=== PATIENT | female | born 1965 | race Caucasian/White ===

== ENCOUNTER → 2016-12-11 | Outpatient (CLI) | payer OTHER ==
[~2016-12-11] MED LIST: /PRAV20TA PO; ANEX7.5T PO; CALCCHW12 PO; CALCTAB22 OR; HYDR25TA6 OR; LISI20TA5 OR; METF500T PO; OMEP20TA7 OR; POTA20TA OR; SIMV20TA2 OR; TYLETAB3 OR; ULTR50TA PO; Xyzal OR; [UNRECOGNIZED DRUG - OTHER]; [UNRECOGNIZED DRUG - OTHER] OR; [UNRECOGNIZED DRUG - OTHER] PO; [UNRECOGNIZED DRUG - OTHER] PO
--- NOTE | 2016-12-16 13:04 | SLEEPCENT ---
DATE OF STUDY: 12/11/2016 ORDERING PROVIDER: Katlin Johnson NP Nocturnal polysomnography was performed for the titration of pressure therapy in this patient with obstructive sleep apnea syndrome, confirmed by home testing, who is intolerant of auto-titratable pressure therapy. For testing, a ResMed Quattro full face mask of small size was used. 4 cm of water pressure were applied to the circuit, and the lights were extinguished. 7 hours and 20 minutes of data were reviewed. There were 360 minutes of sleep identified. Sleep latency was normal at 16 minutes. Rapid eye movement (REM) was normal at 85 minutes. Sleep architecture was fair to good. Some mild fragmentation was seen. There were three REM periods. Overall sleep efficiency was 84%. The patient's electrocardiogram (EKG) showed a sinus rhythm with an average heart rate of 80 beats per minute. Electroencephalogram (EEG) showed reasonably normal waveforms for awake and sleep. Respiratory events were found best palliated with continuous positive airway pressure (CPAP) at a pressure of +5. CPAP tolerance was good. Significant limb activity was identified during this testing. There were three trains of thirty events and a limb movement arousal index of 12.8. Remaining measures of sleep physiology were normal. IMPRESSION: 1. Obstructive sleep apnea syndrome (G47.33). 2. Periodic limb movement disorder (G47.61). Limb movement arousal index 12.8. RECOMMENDATION: Nightly use of pressure therapy at 5 cm of water should be sufficient to address the patient's respiratory events. Should sleep symptoms persist, interventions to reduce the frequency of arousal from limb activity may also be helpful at consolidating sleep.
== END ==
LOC: M SLEEP 19:42
PROVIDERS: ATTEND Nurse Practitioner Adult Health
DX: G47.33 Obstructive sleep apnea (adult) (pediatric) (principal); G47.61 Periodic limb movement disorder

== ENCOUNTER 2017-01-25 21:20 | Observation (INO) | payer OTHER ==
[~2017-01-25] VITALS: Ht 167.6 cm; Wt 92.9 kg
[2017-01-25] MEDS ORDERED: TIZA2CAP3 PO (21:40)
[2017-01-25] MEDS ORDERED: OMEP40CA2 PO (21:40)
[2017-01-25] MEDS ORDERED: METF500T PO (21:40)
[2017-01-25] MEDS ORDERED: VICO5TAB16 PO (21:40)
[2017-01-25] MEDS ORDERED: SIMV20TA2 PO (21:40)
[2017-01-25] MEDS ORDERED: ASMA1AER3 INH (21:40)
[2017-01-25] MEDS ORDERED: ASPI81TA85 PO (21:40)
[2017-01-25] MEDS ORDERED: CYCL10TA PO (21:40)
[2017-01-25] MEDS ORDERED: ALBU17IN INH (21:40)
[2017-01-25] MEDS ORDERED: CALC600T57 PO (21:40)
[2017-01-25] MEDS ORDERED: IPRATROPIUM 0.5MG/ALBUTEROL 2.5MG INH SOL UD 3ML (DUONEB)(J7620) NEB ONE (22:00)
[2017-01-25] MEDS ORDERED: ASPIRIN 81 MG CHEW TABLET PO ONE (22:00)
[2017-01-25] MEDS ORDERED: NS 500 ML IV ONE (22:00)
[2017-01-25 22:14] LABS: BASO % 0.5 % (0.0-1.0); EOS # 0.2 K/mm3 (0.0-0.50); EOS % 1.9 % (0.0-3.0); LARGE UNSTAINED CELL # 0.2 K/mm3 (0.0-0.4); LARGE UNSTAINED CELL % 1.6 % (0.0-4.0); LYMPH # 3.7 K/mm3 (1.5-4.5); LYMPH % 31.5 % (24.0-44.0); MEAN CORPUSCULAR HGB CONC 32.9 g/dl (32.0-36.5); MEAN CORPUSCULAR VOLUME 88.1 fl (80.0-96.0); MONO # 0.5 K/mm3 (0.0-0.8); MONO % 4.9 % (0.0-5.0); NEUTROPHILS # 6.6 K/mm3 (1.8-7.7); NEUTROPHILS % 59.7 % (36.0-66.0); PLATELET COUNT, AUTOMATED 225 k/mm3 (150-450); RED CELL DISTRIBUTION WIDTH 13.4 % (11.5-14.5); WHITE BLOOD COUNT 11.1 K/mm3 (4.0-10.0)
[2017-01-25 22:39] LABS: ANION GAP 7 MEQ/L (8-16); BLOOD UREA NITROGEN 18 MG/DL (7-18); CALCIUM LEVEL 9.6 MG/DL (8.5-10.1); CARBON DIOXIDE LEVEL 28 MEQ/L (21-32); CHLORIDE LEVEL 104 MEQ/L (98-107); CREATININE FOR GFR 1.19 MG/DL (0.55-1.02); GLOMERULAR FILTRATION RATE 51.1 (>51); GLUCOSE, FASTING 126 MG/DL (70-105); POTASSIUM SERUM 3.4 MEQ/L (3.5-5.1); SODIUM LEVEL 139 MEQ/L (136-145)
[2017-01-25] MEDS ORDERED: ISOVUE-370 76% 100ML VIAL (Q9967) As Ordered ONE (22:44)
--- NOTE | 2017-01-25 23:30 | REPUSA ---
CT angiogram of the chest Clinical statement: Chest pain and shortness of breath. Technique: Multiple axial CT images were obtained from the thoracic inlet through the upper abdomen a fter a bolus administration of nonionic intravenous contrast. Coronal and sagittal reconstructions we re also obtained. Comparison: 04/12/2014. Findings: The pulmonary arteries are well-opacified with contrast, with no intraluminal filling defec ts to suggest embolism. The thoracic aorta is unremarkable. Thyroid gland is within normal limits. Th ere is no thoracic lymphadenopathy. There are no pericardial or pleural effusions. There is new linea r infiltrate in the lingula of the left lung. Limited imaging of the upper abdomen is unremarkable. T here are no suspicious osseous lesions. Impression: 1. No evidence of pulmonary embolism. 2. Linear infiltrate/atelectasis in the lingula of the left lung.
[2017-01-25] MEDS ORDERED: AZITHROMYCIN INJ 500 MG, VIAL MATE ADAPTER 1 EACH in D5W 250 ML IV ONE (23:45)
[2017-01-26] VITALS (7 sets, daily range): BP systolic 116–136; BP diastolic 58–74; PULSE 76–83
[2017-01-26] MEDS ORDERED: CALC600T57 PO (00:28)
[2017-01-26] MEDS ORDERED: GLUCOSE 4 GM CHEW TABLET PO PRN (03:15)
[2017-01-26] MEDS ORDERED: GLUCAGON FOR INJ 1 MG VIAL (J1610) SC PRN (03:15)
[2017-01-26] MEDS ORDERED: ONDANSETRON 4MG/2ML VIAL (J2405) IV PRN (03:15)
[2017-01-26] MEDS ORDERED: DEXTROSE 50% 50 ML SYRINGE IV PRN (03:15)
[2017-01-26] MEDS ORDERED: ALBUTEROL SULFATE 2.5 MG/0.5 ML INH NEB SOLN NEB PRN (03:45)
[2017-01-26] MEDS ORDERED: NORCO, ANEXSIA 5/325MG TABLET (HYDROcodone/ACETAMINOPHEN) PO PRN (04:00)
[2017-01-26] MEDS ORDERED: tiZANidine 4 MG TAB PO PRN (04:00)
[2017-01-26] MEDS ORDERED: POTASSIUM CHLORIDE 10 MEQ SR TABLET PO ONE (04:00)
[2017-01-26 04:11] LABS: BASO % 0.5 % (0.0-1.0); EOS # 0.3 K/mm3 (0.0-0.50); EOS % 3.4 % (0.0-3.0); LARGE UNSTAINED CELL # 0.2 K/mm3 (0.0-0.4); LARGE UNSTAINED CELL % 2.1 % (0.0-4.0); LYMPH # 3.2 K/mm3 (1.5-4.5); LYMPH % 38.1 % (24.0-44.0); MEAN CORPUSCULAR HEMOGLOBIN 28.6 pg (27.0-33.0); MEAN CORPUSCULAR HGB CONC 32.2 g/dl (32.0-36.5); MEAN CORPUSCULAR VOLUME 88.8 fl (80.0-96.0); MONO # 0.5 K/mm3 (0.0-0.8); NEUTROPHILS % 49.8 % (36.0-66.0); PLATELET COUNT, AUTOMATED 219 k/mm3 (150-450); RED CELL DISTRIBUTION WIDTH 13.5 % (11.5-14.5)
[2017-01-26 04:22] LABS: CALCIUM LEVEL 9.1 MG/DL (8.5-10.1); CREATININE FOR GFR 1.11 MG/DL (0.55-1.02); GLOMERULAR FILTRATION RATE 55.4 (>51)
[2017-01-26 04:49] LABS: POTASSIUM SERUM 4.1 MEQ/L (3.5-5.1)
--- NOTE | 2017-01-26 06:07 | ECGEPIP ---
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
[2017-01-26] MEDS: LevoFLOXacin 500 MG TABLET PO SCH (06:23)
[2017-01-26] MEDS: HumaLOG INSULIN (NovoLOG) PER UNIT SC SCH ×3 (07:12→16:56)
--- NOTE | 2017-01-26 07:36 | HPE ---
DATE OF ADMISSION: 01/26/2017 PRIMARY CARE PROVIDER: At the resident[facility] clinic. CHIEF COMPLAINT: Left sided chest pain radiating to the axilla for three days. PAST MEDICAL HISTORY: 1. Obesity. 2. Chronic obstructive pulmonary disease (COPD). 3. Diabetes. 4. Obstructive sleep apnea. 5. Periodic limb movement disorder. 6. Hyperlipidemia. 7. Gastroesophageal reflux disease (GERD). 8. Chronic back pain. HISTORY OF PRESENT ILLNESS: This is a 51-year-old female with the above past medical history who presented to the emergency room for a three day history of left sided chest pain present in the second and third intercostal spaces and radiating towards the axilla, constantly present without any aggravation. There is no radiation to the arms or to the back. Not aggravated by deep breaths or by coughing. The patient denied any fever or chills. Denied any nausea, vomiting or diarrhea. Denied any abdominal pain. Denied any palpitations. In the emergency department (ED), the patient was worked up for acute coronary syndrome (ACS). The first set of cardiac enzymes were negative; however, electrocardiogram (EKG) showed sinus tachycardia and ST flattening and T inversion in II, III and aVF leads, which is new compared to previous EKG two years ago. The patient also had a CT angiography done which was negative for pulmonary embolism, however, did show new lingular infiltrate in the left lung. The patient also had Strep throat positive. In the ED, the patient also complained of ear pain and loss of voice and sore throat today, so the patient was admitted for chest pain, rule out ACS and pneumonia. PAST SURGICAL HISTORY: 1. Hysterectomy in 2007. 2. Lumbar laminectomy in 2012. 3. Abdominal hernia repair in 2012. 4. Left nephrectomy in 1998. ALLERGIES: BEE POLLEN (causes anaphylaxis). HOME MEDICATIONS: - acetaminophen/hydrocodone 5/325 one tablet by mouth every 6 hours as needed pain - albuterol sulfate 2 puff inhalation as needed shortness of breath or wheezing - aspirin 81 mg daily - calcium with vitamin D3 2 tablets by mouth at bedtime - cyclobenzaprine 10 mg at bedtime - metformin 500 mg by mouth daily - mometasone 200 mcg inhalation at bedtime - simvastatin 20 mg daily - tizanidine 2 mg three times a day as needed muscle spasms FAMILY HISTORY: Nothing significant. REVIEW OF SYSTEMS: All ten point review of systems negative except those mentioned in HISTORY OF PRESENT ILLNESS: (HPI). PHYSICAL EXAMINATION: VITAL SIGNS: Temperature 98.9. Pulse 92. Respiratory rate 18. Blood pressure 129/52. Pulse oximetry 97% in room air. GENERAL: The patient awake, alert and oriented times three, laying down in bed in no acute distress. HEENT: Normocephalic, atraumatic. Moist mucous membranes. Anicteric eyes. CHEST: Clear to auscultation. CARDIOVASCULAR: S1, S2, regular. No rub, murmur or gallop. ABDOMEN: Obese. Soft. Nontender. Bowel sounds present. EXTREMITIES: No edema. LABORATORY DATA: WBC 11.1, platelets 225. Sodium 139, potassium 3.4, chloride 104, bicarbonate 28, BUN 18, creatinine 1.19, glucose 126, calcium 9.6. Cardia enzymes negative. BNP 9.4. ASSESSMENT AND PLAN: This is a 51-year-old female admitted for chest pain, rule out acute coronary syndrome and pneumonia and Strep throat. 1. Chest pain. Rule out ACS. Will repeat electrocardiogram (EKG) and cardiac enzymes in 6 hours. Most probably noncardiac. It could be related to new lingular infiltrate and pneumonia. 2. Strep throat and pneumonia. Will continue the patient on levofloxacin. 3. Chronic obstructive pulmonary disease. Will continue the patient on steroid inhalation, albuterol and ipratropium inhalation. 4. Diabetes. Will continue the patient on sliding scale insulin. 5. Obstructive sleep apnea. Will continue the patient on CPAP. 6. Chronic back pain. Will continue pain medications and muscle relaxants as required. 7. Deep vein thrombosis (DVT) prophylaxis has been ordered. 8. Gastrointestinal (GI) prophylaxis has been ordered. 9. Hyperlipidemia. Will continue with simvastatin.
--- NOTE | 2017-01-26 08:08 | REP ---
CHEST PA AND LATERAL: 01/25/2017 Comparison: 04/12/2014, 06/04/2009, CT chest 04/12/2014. Clinical History: Chest pain. Findings: The lungs are hyperinflated. The CP angles are sharply defined without effusion, lateral pleural thickening apical scarring and infiltrate or mass. Minor basilar fibrotic changes seen. Heart, mediastinal, hilar contours normal. Hemalatha are mildly prominent but unchanged. Airway intact. Bones with some degenerative changes spine and shoulders. Impression: 1. Some mild hyperinflation without infiltrate, effusion, cardiomegaly, edema, atelectasis or mass. There is some pulmonary arterial hypertension and some minor basilar fibrotic change. Signed by John Almodovar MD 01/26/2017 07:58 A
[2017-01-26] MEDS: SIMVASTATIN 20 MG TAB PO SCH (09:00)
[2017-01-26] MEDS: PANTOPRAZOLE 40MG TAB (PROTONIX) PO SCH (09:00)
[2017-01-26] MEDS: ENOXAPARIN 40 MG/0.4 ML SYRINGE (J1650) SC SCH (09:01)
[2017-01-26] MEDS: IPRATROPIUM 0.5MG/ALBUTEROL 2.5MG INH SOL UD 3ML (DUONEB)(J7620) NEB SCH ×2 (09:08→16:18)
[2017-01-26] MEDS: BUDESONIDE 0.25 MG/2 ML INHALATION SUSPENSION INH SCH ×2 (09:08→20:34)
[2017-01-26] MEDS: ACETAMINOPHEN 500 MG TAB PO PRN (15:51)
--- NOTE | 2017-01-26 17:51 | ECGEPIP ---
Stationary ECG Study [facility] Test Date: 2017-01-26 Pat Name: JEZ DAVIS Department: Room: 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 Nonspecific ST/T-wave abnormalities Repolarization abnormalities less prominent with slower heart rate from 01/25/17. Electronically Signed On 01-26-2017 17:51:08 EDT by Tyler Mckeon
[2017-01-26] MEDS ORDERED: NICOTINE 14 MG/24 HR TRANSDERMAL TD ONE (21:00)
[2017-01-26] MEDS ORDERED: ASPIRIN 81 MG ENTERIC TAB PO SCH (21:00)
[2017-01-26] MEDS ORDERED: HumaLOG INSULIN (NovoLOG) PER UNIT SC SCH (21:00)
[2017-01-27 04:31] VITALS: BP 144/72
[2017-01-27] MEDS: ACETAMINOPHEN 500 MG TAB PO PRN (04:38)
[2017-01-27 05:27] LABS: BASO % 0.5 % (0.0-1.0); EOS # 0.2 K/mm3 (0.0-0.50); EOS % 4.3 % (0.0-3.0); LARGE UNSTAINED CELL # 0.1 K/mm3 (0.0-0.4); LARGE UNSTAINED CELL % 2.1 % (0.0-4.0); LYMPH # 2.5 K/mm3 (1.5-4.5); LYMPH % 44.7 % (24.0-44.0); MEAN CORPUSCULAR HEMOGLOBIN 28.6 pg (27.0-33.0); MEAN CORPUSCULAR HGB CONC 32.4 g/dl (32.0-36.5); MEAN CORPUSCULAR VOLUME 88.4 fl (80.0-96.0); MONO # 0.4 K/mm3 (0.0-0.8); MONO % 6.7 % (0.0-5.0); NEUTROPHILS # 2.2 K/mm3 (1.8-7.7); NEUTROPHILS % 41.7 % (36.0-66.0); PLATELET COUNT, AUTOMATED 198 k/mm3 (150-450); RED CELL DISTRIBUTION WIDTH 13.3 % (11.5-14.5); WHITE BLOOD COUNT 5.3 K/mm3 (4.0-10.0)
[2017-01-27] MEDS: LevoFLOXacin 500 MG TABLET PO SCH (05:29)
[2017-01-27 05:54] LABS: CALCIUM LEVEL 9.1 MG/DL (8.5-10.1); CREATININE FOR GFR 1.18 MG/DL (0.55-1.02); GLOMERULAR FILTRATION RATE 51.6 (>51); POTASSIUM SERUM 3.9 MEQ/L (3.5-5.1)
[2017-01-27 07:30] VITALS: BP 155/78
[2017-01-27] MEDS: BUDESONIDE 0.25 MG/2 ML INHALATION SUSPENSION INH SCH (08:00)
[2017-01-27] MEDS: IPRATROPIUM 0.5MG/ALBUTEROL 2.5MG INH SOL UD 3ML (DUONEB)(J7620) NEB SCH ×2 (08:00)
[2017-01-27] MEDS: PANTOPRAZOLE 40MG TAB (PROTONIX) PO SCH (08:08)
[2017-01-27] MEDS: SIMVASTATIN 20 MG TAB PO SCH (08:08)
[2017-01-27] MEDS: HumaLOG INSULIN (NovoLOG) PER UNIT SC SCH ×2 (08:08→12:00)
[2017-01-27] MEDS: ENOXAPARIN 40 MG/0.4 ML SYRINGE (J1650) SC SCH (08:08)
[2017-01-27] MEDS ORDERED: LEVA500T PO (08:46)
[2017-01-27] MEDS ORDERED: NICOTINE 14 MG/24 HR TRANSDERMAL TD SCH ×2 (09:00)
--- NOTE | 2017-01-27 14:51 | DSES ---
DATE OF ADMISSION: 01/26/2017 DATE OF DISCHARGE: 01/27/2017 ATTENDING PHYSICIAN: Yemi Feliz MD PRIMARY CARE PHYSICIAN: Dr. Hao Knutson REFERRING PHYSICIAN: None. CONSULTING PHYSICIAN: None. CONDITION ON DISCHARGE: Stable. FINAL DIAGNOSIS: Community-acquired pneumonia. PROCEDURES: None. HISTORY OF PRESENT ILLNESS: Patient is a 51-year-old female with a past medical history of obesity, chronic obstructive pulmonary disease (COPD), diabetes, obstructive sleep apnea, periodic limb movement disorder, dyslipidemia, gastroesophageal (GERD), and chronic back pain, who presented to the emergency room with a 3 day history of left-sided chest pain, presented in the 2nd and 3rd intercostal spaces radiating toward her axilla, pain has been constant without any aggravation. Patient was placed on telemetry for monitoring of acute coronary syndrome. Patient was also noted to have new lingular infiltrate in the left lower lung and was started on antibiotics for community-acquired pneumonia. HOSPITAL COURSE: 1. Chest pain, less likely secondary to acute coronary syndrome, more likely secondary to lung etiology, likely secondary to pneumonia, secondary to lingular infiltrate. Cardiac enzymes have been negative. EKG has revealed no evidence of ischemic changes. 2. Streptococcus throat/pneumonia. Patient has been put on Levaquin. Clinically has improvement over the last 24 hours. She has been discharged home with Levaquin to complete antibiotic course. 3. COPD. No evidence of exacerbation. Patient is to continue with steroid inhaled therapy, albuterol and ipratropium. 4. Diabetes. Continue with insulin sliding scale. 5. Obstructive sleep apnea. Continue with continuous positive airway pressure (CPAP). 6. Chronic back pain. Continue with muscle relaxants as required. 7. Dyslipidemia. Continue with simvastatin. 8. Gastrointestinal (GI) prophylaxis. 9. Deep venous thrombosis (DVT) prophylaxis. DISCHARGE MEDICATIONS: Patient has been discharged home with the following medication list: - acetaminophen/hydrocodone one tablet by mouth every 6 hours as needed for pain - albuterol two puffs inhaled as needed for shortness of breath - aspirin 81 mg by mouth nightly - calcium with vitamin D two tablets by mouth nightly - cyclobenzaprine 10 mg by mouth nightly - metformin 500 mg by mouth daily - mometasone 200 mcg inhaled nightly - simvastatin 20 mg by mouth daily - tizanidine 2 mg by mouth three times a day New medications prescribed include: - levofloxacin 500 mg by mouth daily for the next 5 days Patient has been advised to followup with her primary care provider within the next 7 days. She has been advised to remain compliant with her treatment plan and medications and to return to the emergency room if she experiences any problems. Time spent on discharge 35 minutes.
== END 2017-01-27 14:08 | disposition home or self-care (01) ==
LOC: M ED 22:22 → M ED INP 22:23 → UNDOADMOB 01-26 03:02 → M ED INP 01-26 09:11 → M PCU 01-26 15:38 → UNDODISOB 01-27 14:08
PROVIDERS: ADMIT Internal Medicine Nephrology; ATTEND Internal Medicine
DX: R07.9 Chest pain, unspecified (principal); J13 Pneumonia due to Streptococcus pneumoniae; J03.00 Acute streptococcal tonsillitis, unspecified; J44.9 Chronic obstructive pulmonary disease, unspecified; E11.9 Type 2 diabetes mellitus without complications; G47.33 Obstructive sleep apnea (adult) (pediatric); M54.5 Low back pain; E78.5 Hyperlipidemia, unspecified; K21.9 Gastro-esophageal reflux disease without esophagitis; Z79.82 Long term (current) use of aspirin; E66.9 Obesity, unspecified; Z91.030 Bee allergy status; Z79.899 Other long term (current) drug therapy
CPT/HCPCS: 36415; 71010; 71275; 80048; 82550; 82553; 83880; 85025; 87880; 93005; 93041; 94640; 94760; 96365; 96372; 99285; J0456; J1650; Q9967

== ENCOUNTER 2017-03-23 00:09 | Emergency (ER) | payer OTHER ==
[~2017-03-23] VITALS: Ht 167.6 cm; Wt 88.5 kg
[~2017-03-23 00:09] MED LIST changes: +ALBU17IN INH; +ASMA1AER3 INH; +ASPI81TA85 PO; +CALC600T57 PO; +CYCL10TA PO; +LEVA500T PO; +OMEP40CA2 PO; +SIMV20TA2 PO; +TIZA2CAP3 PO; +VICO5TAB16 PO
[2017-03-23 00:18] VITALS: BP 136/75
[2017-03-23] MEDS ORDERED: OMEP40CA2 PO (00:26)
[2017-03-23] MEDS ORDERED: NORCO, ANEXSIA 5/325MG TABLET (HYDROcodone/ACETAMINOPHEN) PO ONE (00:45)
--- NOTE | 2017-03-23 01:24 | REP ---
Clinical: Trauma. Technique: AP, lateral, bilateral oblique and sunrise views of the left knee. Findings: Early moderate tricompartmental degenerative changes and mild osteopenia are appreciated. No definite acute fracture or dislocation identified. Lateral view demonstrates very subtle irregularity involving the superior posterior margin of the fibula likely representing degenerative change and less likely small nondisplaced fracture. Cannot exclude small suprapatellar effusion. Impression: Mild osteopenia and tricompartmental degenerative changes. No definite acute fracture dislocation. As above. Signed by Chilango Lindo MD 03/23/2017 01:16 A
== END 2017-03-23 01:24 | disposition home or self-care (01) ==
LOC: M ED 01:06
DX: S89.92XA Unspecified injury of left lower leg, initial encounter (principal); V18.0XXA Pedal cycle driver injured in noncollision transport accident in nontraffic accident, initial encounter; Y92.830 Public park as the place of occurrence of the external cause; Y93.55 Activity, bike riding; Y99.8 Other external cause status; E11.9 Type 2 diabetes mellitus without complications; J45.909 Unspecified asthma, uncomplicated

== ENCOUNTER → 2017-04-01 | Outpatient (CLI) | payer OTHER ==
--- NOTE | 2017-04-01 14:19 | REPMRS ---
Patient History The patient states she had a clinical breast exam in 03/2017. Patient is postmenopausal. Family history of colorectal cancer in maternal grandmother at age 50 or over. Digital Woman Screen Mammo: April 01, 2017 - Exam #: [id number] Bilateral CC and MLO view(s) were taken. Technologist: Jany Walsh, Technologist Prior study comparison: April 26, 2015, bilateral digital mammo screening bilat, performed at [facility]. April 12, 2014, bilateral digital mammo screening bilat, performed at [facility]. FINDINGS: The breast tissue is extremely dense which could obscure a lesion on mammography. There is no evidence of cancer on this mammogram. No significant changes when compared with prior studies. ASSESSMENT: BI-RADS/ACR category 2 mammogram. Benign finding(s). Recommendation Routine screening mammogram of both breasts in 1 year (for women over age 40). This mammogram was interpreted with the aid of an FDA-approved computer-aided dectection system. Electronically Signed By: Deandre Franco MD 04/01/17 [id number]
== END ==
LOC: M WHC 12:48
PROVIDERS: ATTEND Nurse Practitioner Women's Health
DX: Z12.31 Encounter for screening mammogram for malignant neoplasm of breast (principal)

== ENCOUNTER → 2017-04-24 | Outpatient (REF) | payer OTHER ==
[~2017-04-24] MED LIST changes: +LEVA1TAB2 PO; -LEVA500T PO; +METF500T13 PO
== END ==
LOC: M SFHCPLAZ 13:53
PROVIDERS: ATTEND Family Medicine
DX: E11.9 Type 2 diabetes mellitus without complications (principal); E78.00 Pure hypercholesterolemia, unspecified

== ENCOUNTER → 2017-08-27 | Outpatient (CLI) | payer OTHER ==
[~2017-08-27] MED LIST changes: +BREO1INH3 INH; +NITR0.4D TD
[2017-08-27 15:50] LABS: CREATININE FOR GFR 1.03 MG/DL (0.55-1.02); GLOMERULAR FILTRATION RATE > 60.0 (>51)
== END ==
LOC: M LAB 14:38
PROVIDERS: ATTEND Internal Medicine Interventional Cardiology
DX: I25.10 Atherosclerotic heart disease of native coronary artery without angina pectoris (principal)

== ENCOUNTER 2017-08-30 17:56 | Emergency (ER) | payer OTHER ==
[~2017-08-30] VITALS: Ht 167.6 cm; Wt 77.7 kg
[~2017-08-30 17:56] MED LIST changes: -BREO1INH3 INH; -NITR0.4D TD
[2017-08-30] MEDS ORDERED: NITR0.4D TD (18:18)
[2017-08-30] MEDS ORDERED: BREO1INH3 INH (18:18)
[2017-08-30] MEDS ORDERED: NS 1,000 ML IV SCH (18:32)
[2017-08-30] MEDS ORDERED: ASPIRIN 81 MG CHEW TABLET PO ONE (18:45)
[2017-08-30] MEDS ORDERED: NITROGLYCERIN 0.4 MG SUBL TABLET SL PRN (18:45)
[2017-08-30 18:48] VITALS: BP 157/70
[2017-08-30 19:22] LABS: BASO % 0.2 % (0.0-1.0); EOS # 0.3 10^3/uL (0.0-0.50); EOS % 3.7 % (0.0-3.0); IMMATURE GRANULOCYTE % 0.4 % (0-0); LYMPH # 2.6 10^3/uL (1.5-4.5); LYMPH % 30.3 % (24.0-44.0); MEAN CORPUSCULAR HEMOGLOBIN 29.4 pg (27.0-33.0); MEAN CORPUSCULAR HGB CONC 33.7 g/dl (32.0-36.5); MEAN CORPUSCULAR VOLUME 87.3 fl (80.0-96.0); MONO # 0.6 10^3/uL (0.0-0.8); MONO % 7.3 % (0.0-5.0); NEUTROPHILS # 4.9 10^3/uL (1.8-7.7); NEUTROPHILS % 58.1 % (36.0-66.0); PLATELET COUNT, AUTOMATED 235 10^3/uL (150-450); RED CELL DISTRIBUTION WIDTH 14.6 % (11.5-14.5); WHITE BLOOD COUNT 8.5 10^3/uL (4.0-10.0)
[2017-08-30 19:35] LABS: ALBUMIN 3.7 GM/DL (3.2-5.2); ALBUMIN/GLOBULIN RATIO 1.06 (1.00-1.93); ALKALINE PHOSPHATASE 99 U/L (45-117); ALT/SGPT 24 U/L (12-78); ANION GAP 8 MEQ/L (8-16); AST/SGOT 14 U/L (7-37); BILIRUBIN,DIRECT < 0.1 MG/DL (0.0-0.2); BILIRUBIN,TOTAL 0.2 MG/DL (0.2-1.0); BLOOD UREA NITROGEN 19 MG/DL (7-18); CALCIUM LEVEL 8.9 MG/DL (8.5-10.1); CARBON DIOXIDE LEVEL 23 MEQ/L (21-32); CHLORIDE LEVEL 111 MEQ/L (98-107); GLOMERULAR FILTRATION RATE > 60.0 (>51); GLUCOSE, FASTING 131 MG/DL (70-105); POTASSIUM SERUM 3.9 MEQ/L (3.5-5.1); SODIUM LEVEL 142 MEQ/L (136-145); TOTAL PROTEIN 7.2 GM/DL (6.4-8.2)
[2017-08-30 20:53] VITALS: BP 156/72
--- NOTE | 2017-08-31 05:52 | ECGEPIP ---
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
--- NOTE | 2017-08-31 06:25 | REP ---
CHEST, TWO VIEWS: HISTORY: Chest pain. COMPARISON: 01/25/2017. The lungs are clear. The heart is normal in size. The pulmonary vasculature is normal in appearance. The bony structure is intact. IMPRESSION: No acute disease. Signed by Butch Rudd MD 08/31/2017 08:30 A
== END 2017-08-30 20:59 | disposition home or self-care (01) ==
LOC: M ED 17:56
DX: I20.8 Other forms of angina pectoris (principal); I10 Essential (primary) hypertension; F17.210 Nicotine dependence, cigarettes, uncomplicated; Z79.82 Long term (current) use of aspirin; Z79.84 Long term (current) use of oral hypoglycemic drugs; Z79.51 Long term (current) use of inhaled steroids; Z79.899 Other long term (current) drug therapy; Z95.5 Presence of coronary angioplasty implant and graft; Z82.49 Family history of ischemic heart disease and other diseases of the circulatory system

== ENCOUNTER 2017-09-25 23:00 | Emergency (ER) | payer OTHER ==
[~2017-09-25] VITALS: Ht 167.6 cm; Wt 79.1 kg
[~2017-09-25 23:00] MED LIST changes: +BREO1INH3 INH; +NITR0.4D TD
[2017-09-25] MEDS ORDERED: NITR0.1S TL (23:10)
[2017-09-25] MEDS ORDERED: BRIL90TA PO (23:10)
[2017-09-25] MEDS ORDERED: VARE05TA PO (23:10)
[2017-09-26 00:12] VITALS: BP 133/69
--- NOTE | 2017-09-26 12:06 | REP ---
REASON: Pain after trauma. COMPARISON: 10/03/2012. There is a healed distal radial fracture and a nonunited ulnar styloid fracture, the margins of which are now smooth. There is radiocarpal joint space narrowing. Degenerative changes are seen throughout the wrist. There is no evidence of an acute fracture. IMPRESSION: Chronic changes as described above. Signed by Jamal Degroot DO 09/26/2017 09:19 A
== END 2017-09-26 00:41 | disposition home or self-care (01) ==
LOC: M ED 23:00
DX: S60.212A Contusion of left wrist, initial encounter (principal); W22.09XA Striking against other stationary object, initial encounter; Y92.009 Unspecified place in unspecified non-institutional (private) residence as the place of occurrence of the external cause; Y93.89 Activity, other specified; Y99.8 Other external cause status; I25.10 Atherosclerotic heart disease of native coronary artery without angina pectoris; E11.9 Type 2 diabetes mellitus without complications; I10 Essential (primary) hypertension; F17.210 Nicotine dependence, cigarettes, uncomplicated; Z87.81 Personal history of (healed) traumatic fracture; Z79.899 Other long term (current) drug therapy; Z79.82 Long term (current) use of aspirin; Z79.84 Long term (current) use of oral hypoglycemic drugs; Z79.51 Long term (current) use of inhaled steroids

== ENCOUNTER 2017-10-23 12:16 | Outpatient (RCR) | payer OTHER ==
[2017-10-23 13:56] LABS: BEDSIDE GLUCOSE 99 MG/DL (70-105)
[2017-11-18 11:22] LABS: BEDSIDE GLUCOSE 73 MG/DL (70-105)
== END 2017-11-18 ==
LOC: M CR 12:16
DX: Z95.5 Presence of coronary angioplasty implant and graft (principal); I25.10 Atherosclerotic heart disease of native coronary artery without angina pectoris
CPT/HCPCS: 93798

== ENCOUNTER → 2017-11-17 | Outpatient (REF) | payer OTHER ==
[2017-11-17 18:05] LABS: OSMOLALITY URINE 53 MOSM/KG (500-800)
[2017-11-17 19:46] LABS: CREATININE, URINE < 13.0 MG/DL; MALB URINE SIEMENS < 5.0 MG/L; SODIUM,RANDOM URINE 15 MEQ/L
== END ==
LOC: M SFHCPLAZ 17:00
DX: E11.9 Type 2 diabetes mellitus without complications (principal); R10.2 Pelvic and perineal pain

== ENCOUNTER → 2017-11-18 | Outpatient (CLI) | payer OTHER ==
[2017-11-18 13:17] LABS: ALBUMIN 4.1 GM/DL (3.2-5.2); ANION GAP 7 MEQ/L (8-16); BLOOD UREA NITROGEN 11 MG/DL (7-18); CALCIUM LEVEL 9.4 MG/DL (8.5-10.1); CARBON DIOXIDE LEVEL 30 MEQ/L (21-32); CHLORIDE LEVEL 106 MEQ/L (98-107); GLOMERULAR FILTRATION RATE 55.7 (>51); GLUCOSE, FASTING 87 MG/DL (70-100); PHOSPHORUS LEVEL 2.7 MG/DL (2.5-4.9); SODIUM LEVEL 143 MEQ/L (136-145)
[2017-11-18 13:54] LABS: ESTIMATED AVERAGE GLUCOSE 128 MG/DL (60-110); HEMOGLOBIN A1c 6.1 %; OSMOLALITY SERUM 295 MOSM/KG (275-295)
== END ==
LOC: M LAB 11:32
DX: E11.9 Type 2 diabetes mellitus without complications (principal); R10.2 Pelvic and perineal pain
CPT/HCPCS: 83930

== ENCOUNTER 2017-11-19 09:13 | Outpatient (RCR) | payer OTHER | END 2017-12-16 | LOC: M CR 09:13 | DX: Z95.5 Presence of coronary angioplasty implant and graft (principal); I25.10 Atherosclerotic heart disease of native coronary artery without angina pectoris | CPT/HCPCS: 93798 ==

== ENCOUNTER → 2017-12-03 | Outpatient (CLI) | payer OTHER | LOC: M WHC 11:30 | DX: R10.2 Pelvic and perineal pain (principal) | CPT/HCPCS: 76857 ==

== ENCOUNTER → 2017-12-07 | Outpatient (REF) | payer OTHER ==
[2017-12-08 13:21] LABS: MALB URINE SIEMENS 32.8 MG/L; MAU/CREAT RATIO 30.3 MCG/MG (0.0-30.0)
== END ==
LOC: M SFHCPLAZ 12-08 11:42
DX: R80.9 Proteinuria, unspecified (principal)
CPT/HCPCS: 82043

== ENCOUNTER 2017-12-18 13:26 | Outpatient (RCR) | payer OTHER | END 2018-01-16 | LOC: M CR 13:26 | DX: Z51.89 Encounter for other specified aftercare (principal); Z95.5 Presence of coronary angioplasty implant and graft; I25.10 Atherosclerotic heart disease of native coronary artery without angina pectoris | CPT/HCPCS: 93798 ==

== ENCOUNTER → 2018-01-21 | Outpatient (CLI) | payer OTHER ==
[2018-01-21 09:41] LABS: ALBUMIN 3.7 GM/DL (3.2-5.2); ALBUMIN/GLOBULIN RATIO 0.97 (1.00-1.93); ALKALINE PHOSPHATASE 95 U/L (45-117); ALT/SGPT 31 U/L (12-78); ANION GAP 6 MEQ/L (8-16); AST/SGOT 22 U/L (7-37); BILIRUBIN,TOTAL 0.3 MG/DL (0.2-1.0); BLOOD UREA NITROGEN 17 MG/DL (7-18); CALCIUM LEVEL 9.2 MG/DL (8.5-10.1); CARBON DIOXIDE LEVEL 30 MEQ/L (21-32); CHLORIDE LEVEL 107 MEQ/L (98-107); CHOLESTEROL LEVEL 141 MG/DL (<200); CHOLESTEROL RISK RATIO 2.431 (<5); CREATININE FOR GFR 1.09 MG/DL (0.55-1.30); GLOMERULAR FILTRATION RATE 56.3 (>51); GLUCOSE, FASTING 100 MG/DL (70-100); HDL CHOLESTEROL 58 MG/DL (>40); LDL CHOLESTEROL 62.2 MG/DL (<100); NON-HDL-C 83 MG/DL; POTASSIUM SERUM 4.4 MEQ/L (3.5-5.1); SODIUM LEVEL 143 MEQ/L (136-145); TOTAL PROTEIN 7.5 GM/DL (6.4-8.2); TRIGLYCERIDES LEVEL 104 MG/DL (<150)
== END ==
LOC: M LAB 08:27
DX: E78.2 Mixed hyperlipidemia (principal)
CPT/HCPCS: 80053

== ENCOUNTER → 2018-01-29 | Outpatient (REF) | payer OTHER ==
[2018-01-29 15:40] LABS: APPEARANCE, URINE CLEAR (CLEAR); BACTERIA, URINE AUTO NEGATIVE (NEGATIVE); BILIRUBIN, URINE AUTO NEGATIVE (NEGATIVE); BLOOD, URINE BLOOD NEGATIVE (NEGATIVE); COLOR, URINE STRAW (YELLOW); GLUCOSE, URINE (UA) AUTO NEGATIVE (NEGATIVE); KETONE, URINE AUTO NEGATIVE (NEGATIVE); LEUKOCYTE ESTERASE, URINE AUTO NEGATIVE (NEGATIVE); NITRITE, URINE AUTO NEGATIVE (NEGATIVE); PROTEIN, URINE AUTO NEGATIVE (NEGATIVE); RBC, URINE AUTO 2 /HPF (0-3); SPECIFIC GRAVITY URINE AUTO 1.004 (1.002-1.035); SQUAMOUS EPITHELIAL CELL UR AU 1 /HPF (0-6); UROBILINOGEN, URINE AUTO 0.2 mg/dL (0.0-2.0); WBC, URINE AUTO 0 /HPF (0-3)
== END ==
LOC: M SFHCWAGY 15:24
DX: R10.2 Pelvic and perineal pain (principal)
CPT/HCPCS: 81001

== ENCOUNTER → 2018-02-02 | Outpatient (REF) | payer OTHER ==
[2018-02-02 18:31] LABS: ESTIMATED AVERAGE GLUCOSE 117 MG/DL (60-110); HEMOGLOBIN A1c 5.7 %
[2018-02-02 18:37] LABS: CREATININE, URINE 26.2 MG/DL; MALB URINE SIEMENS 8.9 MG/L; MAU/CREAT RATIO 33.9 MCG/MG (0.0-30.0)
== END ==
LOC: M SFHCPLAZ 15:14
DX: E11.9 Type 2 diabetes mellitus without complications (principal)

== ENCOUNTER 2018-04-19 10:41 | Outpatient (RCR) | payer OTHER | END 2018-05-18 | disposition home or self-care (01) | LOC: M PT 10:41 | DX: Z51.89 Encounter for other specified aftercare (principal); M54.2 Cervicalgia ==

== ENCOUNTER 2018-05-17 10:05 | Emergency (ER) | payer OTHER ==
[2018-05-17] MEDS: COLCHICINE 0.6 MG TAB PO (13:07)
[2018-05-17] MEDS: INDOMETHACIN 25 MG CAP PO (13:16)
== END 2018-05-17 13:19 | disposition home or self-care (01) ==
LOC: M ED 10:05
DX: M10.072 Idiopathic gout, left ankle and foot (principal); E11.9 Type 2 diabetes mellitus without complications; M51.9 Unspecified thoracic, thoracolumbar and lumbosacral intervertebral disc disorder; R51 Headache; J44.9 Chronic obstructive pulmonary disease, unspecified; G47.33 Obstructive sleep apnea (adult) (pediatric); K21.9 Gastro-esophageal reflux disease without esophagitis; Z87.442 Personal history of urinary calculi; F17.210 Nicotine dependence, cigarettes, uncomplicated; Z91.030 Bee allergy status; Z79.899 Other long term (current) drug therapy; Z79.01 Long term (current) use of anticoagulants; Z79.82 Long term (current) use of aspirin; Z79.51 Long term (current) use of inhaled steroids
CPT/HCPCS: 73630

== ENCOUNTER → 2018-06-03 | Outpatient (CLI) | payer OTHER ==
[2018-06-03 09:18] LABS: BASO % 0.4 % (0.0-1.0); EOS # 0.3 10^3/uL (0.0-0.50); EOS % 2.9 % (0.0-3.0); HEMATOCRIT 41.6 % (36.0-47.0); HEMOGLOBIN 13.5 g/dl (12.0-15.5); IMMATURE GRANULOCYTE % 0.4 % (0-3.0); LYMPH # 2.9 10^3/uL (1.5-4.5); LYMPH % 32.4 % (24.0-44.0); MEAN CORPUSCULAR HGB CONC 32.5 g/dl (32.0-36.5); MEAN CORPUSCULAR VOLUME 89.5 fl (80.0-96.0); MONO # 0.7 10^3/uL (0.0-0.8); NEUTROPHILS % 55.9 % (36.0-66.0); PLATELET COUNT, AUTOMATED 300 10^3/uL (150-450); RED BLOOD COUNT 4.65 10^6/uL (4.00-5.40); RED CELL DISTRIBUTION WIDTH 15.8 % (11.5-14.5)
[2018-06-03 09:58] LABS: ANION GAP 7 MEQ/L (8-16); BLOOD UREA NITROGEN 12 MG/DL (7-18); C REACTIVE PROTEIN QUANTITATIV < 0.30 MG/DL (0.00-0.30); CALCIUM LEVEL 9.6 MG/DL (8.5-10.1); CARBON DIOXIDE LEVEL 28 MEQ/L (21-32); CHLORIDE LEVEL 107 MEQ/L (98-107); CREATININE FOR GFR 1.08 MG/DL (0.55-1.30); GLOMERULAR FILTRATION RATE 56.7 (>51); GLUCOSE, FASTING 103 MG/DL (70-100); POTASSIUM SERUM 4.3 MEQ/L (3.5-5.1); SODIUM LEVEL 142 MEQ/L (136-145); URIC ACID 6.7 MG/DL (2.6-6.0)
[2018-06-03 10:27] LABS: ESTIMATED AVERAGE GLUCOSE 131 MG/DL (60-110); HEMOGLOBIN A1c 6.2 %
[2018-06-03 15:26] LABS: ERYTHROCYTE SEDIMENTATION RATE 15 mm/hr (0-30)
== END ==
LOC: M LAB 08:41
DX: M10.9 Gout, unspecified (principal)
CPT/HCPCS: 84550

== ENCOUNTER → 2018-06-28 | Outpatient (CLI) | payer OTHER | LOC: M WHC 13:24 | DX: Z12.31 Encounter for screening mammogram for malignant neoplasm of breast (principal) | CPT/HCPCS: 77067 ==

== ENCOUNTER → 2018-07-09 | Outpatient (CLI) | payer OTHER | LOC: M LAB 12:35 | DX: R53.83 Other fatigue (principal) | CPT/HCPCS: 84443 ==

== ENCOUNTER → 2018-07-19 | Outpatient (CLI) | payer OTHER ==
[2018-07-19 14:29] LABS: CREATININE, URINE 88.1 MG/DL; MALB URINE SIEMENS 32.4 MG/L
[2018-07-19 14:30] LABS: MAU/CREAT RATIO 36.8 MCG/MG (0.0-30.0)
== END ==
LOC: M LAB 12:32
DX: R80.9 Proteinuria, unspecified (principal); M79.9 Soft tissue disorder, unspecified
CPT/HCPCS: 70360

== ENCOUNTER → 2018-07-19 | Outpatient (CLI) | payer OTHER ==
[2018-07-19 13:42] LABS: HEMOGLOBIN 13.5 g/dl (12.0-15.5); MEAN CORPUSCULAR HEMOGLOBIN 28.8 pg (27.0-33.0); MEAN CORPUSCULAR HGB CONC 32.9 g/dl (32.0-36.5); MEAN CORPUSCULAR VOLUME 87.6 fl (80.0-96.0); PLATELET COUNT, AUTOMATED 270 10^3/uL (150-450); RED BLOOD COUNT 4.68 10^6/uL (4.00-5.40); RED CELL DISTRIBUTION WIDTH 15.2 % (11.5-14.5); WHITE BLOOD COUNT 7.7 10^3/uL (4.0-10.0)
[2018-07-19 14:04] LABS: ALBUMIN 3.8 GM/DL (3.2-5.2); ANION GAP 6 MEQ/L (8-16); BLOOD UREA NITROGEN 20 MG/DL (7-18); CALCIUM LEVEL 9.2 MG/DL (8.5-10.1); CARBON DIOXIDE LEVEL 28 MEQ/L (21-32); CHLORIDE LEVEL 106 MEQ/L (98-107); CREATININE FOR GFR 1.05 MG/DL (0.55-1.30); GLOMERULAR FILTRATION RATE 58.6 (>51); GLUCOSE, FASTING 108 MG/DL (70-100); POTASSIUM SERUM 4.5 MEQ/L (3.5-5.1); SODIUM LEVEL 140 MEQ/L (136-145)
== END ==
LOC: M LAB 12:29
DX: I10 Essential (primary) hypertension (principal); I25.10 Atherosclerotic heart disease of native coronary artery without angina pectoris
CPT/HCPCS: 80069

== ENCOUNTER → 2018-07-29 | Outpatient (CLI) | payer OTHER | LOC: M SLEEP 19:24 | DX: G47.33 Obstructive sleep apnea (adult) (pediatric) (principal) | CPT/HCPCS: 95811 ==

== ENCOUNTER 2018-08-25 22:33 | Emergency (ER) | payer OTHER ==
[2018-08-25 23:07] LABS: BASO % 0.4 % (0.0-1.0); EOS # 0.3 10^3/uL (0.0-0.50); EOS % 2.7 % (0.0-3.0); HEMATOCRIT 40.6 % (36.0-47.0); HEMOGLOBIN 13.1 g/dl (12.0-15.5); IMMATURE GRANULOCYTE % 0.2 % (0-3.0); LYMPH # 3.2 10^3/uL (1.5-4.5); LYMPH % 29.6 % (24.0-44.0); MEAN CORPUSCULAR HEMOGLOBIN 28.9 pg (27.0-33.0); MEAN CORPUSCULAR HGB CONC 32.3 g/dl (32.0-36.5); MEAN CORPUSCULAR VOLUME 89.6 fl (80.0-96.0); MONO # 0.7 10^3/uL (0.0-0.8); MONO % 6.2 % (0.0-5.0); NEUTROPHILS # 6.6 10^3/uL (1.8-7.7); NEUTROPHILS % 60.9 % (36.0-66.0); PLATELET COUNT, AUTOMATED 247 10^3/uL (150-450); RED BLOOD COUNT 4.53 10^6/uL (4.00-5.40); RED CELL DISTRIBUTION WIDTH 14.5 % (11.5-14.5); WHITE BLOOD COUNT 10.8 10^3/uL (4.0-10.0)
[2018-08-25 23:20] LABS: INR 0.89; PARTIAL THROMBOPLASTIN TIME 25.6 SECONDS (25.4-37.6); PROTHROMBIN TIME 12.2 SECONDS (12.1-14.4)
[2018-08-25] MEDS: ASPIRIN 325 MG TAB PO (23:23)
[2018-08-25] MEDS: KETOROLAC 30 MG/ML VIAL (J1885) IV (23:23)
[2018-08-25 23:34] LABS: ANION GAP 6 MEQ/L (8-16); BLOOD UREA NITROGEN 15 MG/DL (7-18); CALCIUM LEVEL 8.9 MG/DL (8.5-10.1); CARBON DIOXIDE LEVEL 30 MEQ/L (21-32); CHLORIDE LEVEL 109 MEQ/L (98-107); CPK CREATINE PHOSPHOKINASE 93 U/L (26-192); CREATININE FOR GFR 0.88 MG/DL (0.55-1.30); GLOMERULAR FILTRATION RATE > 60.0 (>51); GLUCOSE, FASTING 115 MG/DL (70-100); MB/CK RELATIVE INDEX 1.61 (< OR =4); POTASSIUM SERUM 3.8 MEQ/L (3.5-5.1); SODIUM LEVEL 145 MEQ/L (136-145); TROPONIN I < 0.02 NG/ML (< 0.10)
[2018-08-26] MEDS ORDERED: ISOVUE-370 76% 100ML VIAL (Q9967) As Ordered (00:21)
[2018-08-26 02:45] LABS: CPK CREATINE PHOSPHOKINASE 84 U/L (26-192); MB/CK RELATIVE INDEX 1.79 (< OR =4); TROPONIN I < 0.02 NG/ML (< 0.10)
== END 2018-08-26 03:49 | disposition home or self-care (01) ==
LOC: M ED 08-26 03:49
DX: R07.89 Other chest pain (principal); R07.1 Chest pain on breathing; R91.1 Solitary pulmonary nodule; I25.10 Atherosclerotic heart disease of native coronary artery without angina pectoris; E11.9 Type 2 diabetes mellitus without complications; I10 Essential (primary) hypertension; E78.5 Hyperlipidemia, unspecified; J44.9 Chronic obstructive pulmonary disease, unspecified; K21.9 Gastro-esophageal reflux disease without esophagitis; G89.29 Other chronic pain; M54.9 Dorsalgia, unspecified; Z95.5 Presence of coronary angioplasty implant and graft; Z72.0 Tobacco use; Z79.82 Long term (current) use of aspirin; Z79.84 Long term (current) use of oral hypoglycemic drugs; Z79.899 Other long term (current) drug therapy; Z91.030 Bee allergy status
CPT/HCPCS: Q9967

== ENCOUNTER → 2018-09-20 | Outpatient (REF) | payer OTHER ==
[2018-09-20 16:47] LABS: ALBUMIN 3.7 GM/DL (3.2-5.2); ANION GAP 8 MEQ/L (8-16); BLOOD UREA NITROGEN 24 MG/DL (7-18); CALCIUM LEVEL 8.9 MG/DL (8.5-10.1); CARBON DIOXIDE LEVEL 27 MEQ/L (21-32); CHLORIDE LEVEL 105 MEQ/L (98-107); CREATININE FOR GFR 0.98 MG/DL (0.55-1.30); GLOMERULAR FILTRATION RATE > 60.0 (>51); GLUCOSE, FASTING 92 MG/DL (70-100); PHOSPHORUS LEVEL 3.4 MG/DL (2.5-4.9); POTASSIUM SERUM 4.1 MEQ/L (3.5-5.1); SODIUM LEVEL 140 MEQ/L (136-145)
[2018-09-20 16:56] LABS: ESTIMATED AVERAGE GLUCOSE 137 MG/DL (60-110); HEMOGLOBIN A1c 6.4 %
== END ==
LOC: M SFHCPLAZ 14:26
DX: E11.9 Type 2 diabetes mellitus without complications (principal)
CPT/HCPCS: 80069

== ENCOUNTER → 2018-09-21 | Outpatient (CLI) | payer OTHER | LOC: M RAD 13:26 | DX: R22.1 Localized swelling, mass and lump, neck (principal) | CPT/HCPCS: 76536 ==

== ENCOUNTER → 2018-09-29 | Outpatient (CLI) | payer OTHER ==
[~2018-09-29] MED LIST changes: -/PRAV20TA PO; -ALBU17IN INH; -ANEX7.5T PO; -ASMA1AER3 INH; -ASPI81TA85 PO; -BREO1INH3 INH; -CALC600T57 PO; -CALCCHW12 PO; -CALCTAB22 OR; -CYCL10TA PO; -HYDR25TA6 OR; -LEVA1TAB2 PO; -LISI20TA5 OR; -METF500T PO; -METF500T13 PO; -NITR0.4D TD; -OMEP20TA7 OR; -OMEP40CA2 PO; -POTA20TA OR; +PROHANCE 279.3MG/ML 15ML VIAL (A9576) As Ordered; -SIMV20TA2 OR; -SIMV20TA2 PO; -TIZA2CAP3 PO; -TYLETAB3 OR; -ULTR50TA PO; -VICO5TAB16 PO; -Xyzal OR; -[UNRECOGNIZED DRUG - OTHER]; -[UNRECOGNIZED DRUG - OTHER] OR; -[UNRECOGNIZED DRUG - OTHER] PO; -[UNRECOGNIZED DRUG - OTHER] PO
== END ==
LOC: M RAD 11:05
DX: I73.9 Peripheral vascular disease, unspecified (principal); R51 Headache
CPT/HCPCS: A9576

== ENCOUNTER → 2018-11-19 | Outpatient (REF) | payer OTHER ==
[~2018-11-19] MED LIST changes: +/PRAV20TA PO; +ALBU17IN INH; +ANEX7.5T PO; +ASMA1AER3 INH; +ASPI81TA85 PO; +ATOR40TA75 PO; +BREO1INH3 INH; +BRIL90TA PO; +CALC600T57 PO; +CALCCHW12 PO; +CALCTAB22 OR; +CARV3.12 PO; +COLC1TAB13 PO; +CYCL10TA PO; +HYDR25TA6 OR; +INDO50CA PO; +LEVA1TAB2 PO; +LISI2.5T5 PO; +LISI20TA5 OR; +METF500T PO; +METF500T13 PO; +MORP-38 PO; +NICO21DI6 TOP; +NITR0.1S TL; +NITR0.4D10 TD; +OMEP20TA7 OR; +OMEP40CA2 PO; +POTA20TA OR; -PROHANCE 279.3MG/ML 15ML VIAL (A9576) As Ordered; +SIMV20TA2 OR; +SIMV20TA2 PO; +TIZA2CAP PO; +TYLETAB3 OR; +ULTR50TA PO; +VARE05TA PO; +VICO10TA11 PO; +VICO5TAB16 PO; +Xyzal OR; +[UNRECOGNIZED DRUG - OTHER]; +[UNRECOGNIZED DRUG - OTHER] OR; +[UNRECOGNIZED DRUG - OTHER] PO; +[UNRECOGNIZED DRUG - OTHER] PO
== END ==
LOC: M SFHCPLAZ 09:45
PROVIDERS: ATTEND Student in an Organized Health Care Education/Training Program
DX: R22.1 Localized swelling, mass and lump, neck (principal)

== ENCOUNTER → 2019-04-11 | Outpatient (CLI) | payer OTHER ==
[~2019-04-11] MED LIST changes: -/PRAV20TA PO; -INDO50CA PO; +INDO50CA11 PO; +LISI-1046 PO; -LISI2.5T5 PO; +PRAV1TAB39 PO; -VICO5TAB16 PO; +VICO5TAB17 PO
[2019-04-11 12:28] LABS: HEPATITIS A ANTIBODY IGM NEGATIVE (NEGATIVE); HEPATITIS B CORE ANTIBODY IGM NEGATIVE (NEGATIVE); HEPATITIS B SURFACE ANTIBODY NEGATIVE (POSITIVE); HEPATITIS B SURFACE ANTIGEN NEGATIVE (NEGATIVE); HEPATITIS C VIRUS ABY INDEX 0.1 INDEX (<0.8); HIV 1&2 SCREEN CENTAUR NEGATIVE (NEGATIVE)
[2019-04-11 12:38] LABS: CHLAMYDIA DNA AMPLIFICATION NEGATIVE (NEGATIVE); GC DNA AMPLIFICATION NEGATIVE (NEGATIVE)
[2019-04-14 00:06] LABS: HBV HBV DNA not detected IU/mL (.); HEPATITIS BE ANTIBODY Negative (Negative); HEPATITIS BE ANTIGEN Negative (Negative)
== END ==
LOC: M LAB 10:34
PROVIDERS: ATTEND Student in an Organized Health Care Education/Training Program
DX: Z20.5 Contact with and (suspected) exposure to viral hepatitis (principal); Z11.3 Encounter for screening for infections with a predominantly sexual mode of transmission

== ENCOUNTER → 2019-09-06 | Outpatient (CLI) | payer OTHER ==
[~2019-09-06] MED LIST changes: -INDO50CA11 PO; +INDO50CA91 PO; -MORP-38 PO; +MORP-69 PO; -OMEP40CA2 PO; +OMEP40CA97 PO
[2019-09-06 09:01] LABS: HEMATOCRIT 41.2 % (36.0-47.0); MEAN CORPUSCULAR HEMOGLOBIN 28.4 pg (27.0-33.0); MEAN CORPUSCULAR HGB CONC 31.6 g/dl (32.0-36.5); PLATELET COUNT, AUTOMATED 251 10^3/uL (150-450); RED BLOOD COUNT 4.58 10^6/uL (4.00-5.40); WHITE BLOOD COUNT 5.8 10^3/uL (4.0-10.0)
[2019-09-06 09:30] LABS: CALCIUM LEVEL 9.5 MG/DL (8.5-10.1); CHOLESTEROL RISK RATIO 2.2 (<5); CREATININE FOR GFR 1.3 MG/DL (0.55-1.30); GLOMERULAR FILTRATION RATE 45.6 (>51); POTASSIUM SERUM 4.4 MEQ/L (3.5-5.1)
== END ==
LOC: M LAB 08:15
PROVIDERS: ATTEND Physician Assistant
DX: I10 Essential (primary) hypertension (principal)

== ENCOUNTER → 2019-11-03 | Outpatient (CLI) | payer OTHER ==
[~2019-11-03] MED LIST changes: +NEUR300C PO; -SIMV20TA2 PO; +SIMV20TA22 PO; +VENTAER INH
[2019-11-03 11:13] LABS: HEMOGLOBIN A1c 6.3 %
[2019-11-03 11:22] LABS: ALBUMIN 3.7 GM/DL (3.2-5.2); CALCIUM LEVEL 9.3 MG/DL (8.5-10.1); CREATININE FOR GFR 1.07 MG/DL (0.55-1.30); GLOMERULAR FILTRATION RATE 57.1 (>51); PHOSPHORUS LEVEL 3.3 MG/DL (2.5-4.9); POTASSIUM SERUM 4.6 MEQ/L (3.5-5.1)
[2019-11-03 11:33] LABS: CREATININE, URINE < 13.0 MG/DL; MALB URINE SIEMENS 10.3 MG/L
== END ==
LOC: M LAB 09:45
PROVIDERS: ATTEND Hospitalist
DX: E11.9 Type 2 diabetes mellitus without complications (principal)

== ENCOUNTER 2019-11-16 13:14 | Outpatient (RCR) | payer OTHER | END 2019-11-18 | LOC: M PT 13:14 | PROVIDERS: ATTEND Registered Nurse Critical Care Medicine | DX: M50.20 Other cervical disc displacement, unspecified cervical region (principal); M54.12 Radiculopathy, cervical region; M54.5 Low back pain; M96.1 Postlaminectomy syndrome, not elsewhere classified ==

== ENCOUNTER 2019-11-25 09:46 | Emergency (ER) | payer OTHER ==
[~2019-11-25] VITALS: Ht 167.6 cm; Wt 76.5 kg
[2019-11-25] MEDS ORDERED: OMEP-221 (09:59)
[2019-11-25 10:07] VITALS: BP 145/74
[2019-11-25] MEDS ORDERED: MAGICMW SSP (10:13)
[2019-11-25] MEDS ORDERED: AUGM875T28 PO (10:13)
== END 2019-11-25 10:32 | disposition home or self-care (01) ==
LOC: M ED 09:46
DX: K12.1 Other forms of stomatitis (principal); Z97.2 Presence of dental prosthetic device (complete) (partial); J44.9 Chronic obstructive pulmonary disease, unspecified; E11.9 Type 2 diabetes mellitus without complications; I10 Essential (primary) hypertension; G47.33 Obstructive sleep apnea (adult) (pediatric); K21.9 Gastro-esophageal reflux disease without esophagitis; Z95.5 Presence of coronary angioplasty implant and graft; Z79.899 Other long term (current) drug therapy; Z79.84 Long term (current) use of oral hypoglycemic drugs; Z79.82 Long term (current) use of aspirin; Z91.030 Bee allergy status; F17.210 Nicotine dependence, cigarettes, uncomplicated

== ENCOUNTER 2019-12-07 08:15 | Outpatient (RCR) | payer OTHER ==
[~2019-12-07 08:15] MED LIST changes: +AUGM875T28 PO; +MAGICMW SSP; +OMEP-221
== END 2019-12-17 ==
LOC: M PT 08:15
PROVIDERS: ATTEND Registered Nurse Critical Care Medicine
DX: Z47.89 Encounter for other orthopedic aftercare (principal); M50.20 Other cervical disc displacement, unspecified cervical region; M54.12 Radiculopathy, cervical region; M54.5 Low back pain; M96.1 Postlaminectomy syndrome, not elsewhere classified

== ENCOUNTER 2020-01-04 09:00 | Outpatient (RCR) | payer OTHER | END 2020-01-17 | LOC: M PT 09:00 | PROVIDERS: ATTEND Registered Nurse Critical Care Medicine | DX: M50.20 Other cervical disc displacement, unspecified cervical region (principal); M54.12 Radiculopathy, cervical region; M54.5 Low back pain; M96.1 Postlaminectomy syndrome, not elsewhere classified ==

== ENCOUNTER 2020-04-04 07:01 | Emergency (ER) | payer OTHER ==
[~2020-04-04] VITALS: Ht 167.6 cm; Wt 77.3 kg
[~2020-04-04 07:01] MED LIST changes: +CYCL-707 PO; -CYCL10TA PO; -LISI-1046 PO; +LISI2.5T2 PO
[2020-04-04] MEDS ORDERED: MORPHINE PO (07:12)
[2020-04-04] MEDS ORDERED: INCR1INH INH (07:12)
[2020-04-04] MEDS ORDERED: NORCO, ANEXSIA 5/325MG TABLET (HYDROcodone/ACETAMINOPHEN) PO ONE (08:00)
[2020-04-04 08:08] LABS: BASO % 0.4 % (0.0-1.0); EOS # 0.3 10^3/uL (0.0-0.5); EOS % 2.2 % (0.0-3.0); HEMATOCRIT 40.1 % (36.0-47.0); HEMOGLOBIN 12.8 g/dl (12.0-15.5); LYMPH # 1.7 10^3/uL (1.5-5.0); LYMPH % 14.8 % (24.0-44.0); MEAN CORPUSCULAR HEMOGLOBIN 27.8 pg (27.0-33.0); MEAN CORPUSCULAR HGB CONC 31.9 g/dl (32.0-36.5); MEAN CORPUSCULAR VOLUME 87.2 fl (80.0-96.0); MONO # 0.9 10^3/uL (0.0-0.8); MONO % 7.8 % (0.0-5.0); NEUTROPHILS # 8.3 10^3/uL (1.5-8.5); NEUTROPHILS % 74.5 % (36.0-66.0); PLATELET COUNT, AUTOMATED 240 10^3/uL (150-450); WHITE BLOOD COUNT 11.2 10^3/uL (4.0-10.0)
[2020-04-04 08:34] LABS: C REACTIVE PROTEIN QUANTITATIV 2.31 MG/DL (0.00-0.30); ERYTHROCYTE SEDIMENTATION RATE 30 mm/hr (0-30)
[2020-04-04 08:34] LABS: BLOOD UREA NITROGEN 21 MG/DL (7-18); CALCIUM LEVEL 9.1 MG/DL (8.5-10.1); CARBON DIOXIDE LEVEL 28 MEQ/L (21-32); CHLORIDE LEVEL 110 MEQ/L (98-107); CREATININE FOR GFR 0.94 MG/DL (0.55-1.30); GLOMERULAR FILTRATION RATE > 60.0 (>51); GLUCOSE, FASTING 126 MG/DL (70-100); SODIUM LEVEL 142 MEQ/L (136-145)
--- NOTE | 2020-04-04 08:36 | REP ---
Right foot series: Four views. History: Right first toe pain and swelling. Erythema. Findings: Four views of the right foot demonstrate mild diffuse osteopenia. There is Achilles calcaneal spurring and plantar calcaneal spurring. Mild midfoot intertarsal spurring is seen on the lateral radiograph. Bones, joints, and soft tissues are otherwise radiographically unremarkable. Impression: Osteoarthritic and heel spurring. No acute bony abnormality. Electronically Signed by Keith Chavez MD 04/04/2020 08:28 A
[2020-04-04] MEDS ORDERED: PRED20TA PO (09:05)
[2020-04-04] MEDS ORDERED: predniSONE 20 MG TAB PO ONE (09:15)
[2020-04-04 09:16] VITALS: BP 140/85
== END 2020-04-04 09:18 | disposition home or self-care (01) ==
LOC: M ED 07:01
DX: M10.071 Idiopathic gout, right ankle and foot (principal)

== ENCOUNTER → 2020-09-06 | Outpatient (CLI) | payer OTHER ==
[~2020-09-06] MED LIST changes: -ASPI81TA85 PO; +ASPI81TA86 PO; +INCR1INH INH; +MORPHINE PO; +PRED20TA PO
[2020-09-06 12:53] LABS: HEMATOCRIT 41.6 % (36.0-47.0); HEMOGLOBIN 13.3 g/dl (12.0-15.5); MEAN CORPUSCULAR HEMOGLOBIN 28.7 pg (27.0-33.0); MEAN CORPUSCULAR VOLUME 89.8 fl (80.0-96.0); PLATELET COUNT, AUTOMATED 221 10^3/uL (150-450); RED BLOOD COUNT 4.63 10^6/uL (4.00-5.40)
[2020-09-06 13:24] LABS: BLOOD UREA NITROGEN 12 MG/DL (7-18); CALCIUM LEVEL 9.7 MG/DL (8.5-10.1); CARBON DIOXIDE LEVEL 28 MEQ/L (21-32); CHLORIDE LEVEL 109 MEQ/L (98-107); CHOLESTEROL LEVEL 146 MG/DL (<200); CHOLESTEROL RISK RATIO 2.246 (<5); CREATININE FOR GFR 0.95 MG/DL (0.55-1.30); GLOMERULAR FILTRATION RATE > 60.0 (>51); GLUCOSE, FASTING 92 MG/DL (70-100); HDL CHOLESTEROL 65 MG/DL (>40); LDL CHOLESTEROL 55 MG/DL (<100); NON-HDL-C 81 MG/DL; POTASSIUM SERUM 4.3 MEQ/L (3.5-5.1); SODIUM LEVEL 143 MEQ/L (136-145); TRIGLYCERIDES LEVEL 132 MG/DL (<150)
[2020-09-06 13:57] LABS: HEMOGLOBIN A1c 6.2 %
== END ==
LOC: M LAB 12:16
DX: E11.9 Type 2 diabetes mellitus without complications (principal); F17.200 Nicotine dependence, unspecified, uncomplicated; K21.9 Gastro-esophageal reflux disease without esophagitis; I10 Essential (primary) hypertension

== ENCOUNTER → 2020-12-28 | Outpatient (CLI) | payer OTHER ==
[~2020-12-28] MED LIST changes: +COLC0.6T47 PO; -COLC1TAB13 PO
[2020-12-28 13:12] LABS: BASO % 0.3 % (0.0-1.0); EOS # 0.3 10^3/uL (0.0-0.5); EOS % 3.5 % (0.0-3.0); HEMOGLOBIN 13.9 g/dl (12.0-15.5); LYMPH # 2.6 10^3/uL (1.5-5.0); LYMPH % 36.4 % (24.0-44.0); MEAN CORPUSCULAR HGB CONC 31.6 g/dl (32.0-36.5); MEAN CORPUSCULAR VOLUME 91.9 fl (80.0-96.0); MONO # 0.5 10^3/uL (0.0-0.8); MONO % 6.8 % (2.0-8.0); NEUTROPHILS # 3.8 10^3/uL (1.5-8.5); NEUTROPHILS % 52.9 % (36.0-66.0); PLATELET COUNT, AUTOMATED 236 10^3/uL (150-450); RED BLOOD COUNT 4.79 10^6/uL (4.00-5.40); WHITE BLOOD COUNT 7.1 10^3/uL (4.0-10.0)
[2020-12-28 13:53] LABS: ALT/SGPT 24 U/L (12-78); BILIRUBIN,TOTAL 0.3 MG/DL (0.2-1.0); BLOOD UREA NITROGEN 18 MG/DL (7-18); CALCIUM LEVEL 9.6 MG/DL (8.5-10.1); CARBON DIOXIDE LEVEL 30 MEQ/L (21-32); CHLORIDE LEVEL 107 MEQ/L (98-107); CPK CREATINE PHOSPHOKINASE 121 U/L (26-192); GLOMERULAR FILTRATION RATE > 60.0 (>51); GLUCOSE, FASTING 146 MG/DL (70-100); MAGNESIUM LEVEL 2.2 MG/DL (1.8-2.4); MB/CK RELATIVE INDEX 1.65 (< OR =4); NT-PRO BNP 69 PG/ML (<125); PHOSPHORUS LEVEL 3.9 MG/DL (2.5-4.9); POTASSIUM SERUM 4.4 MEQ/L (3.5-5.1); SODIUM LEVEL 140 MEQ/L (136-145); TOTAL PROTEIN 7.2 GM/DL (6.4-8.2); TROPONIN I < 0.02 NG/ML (< 0.10)
== END ==
LOC: M LABDRWAD 11:24
PROVIDERS: ATTEND Nurse Practitioner Family
DX: R07.9 Chest pain, unspecified (principal)

== ENCOUNTER → 2020-12-28 | Outpatient (CLI) | payer OTHER ==
--- NOTE | 2020-12-28 11:58 | REP ---
INDICATION: C/O CHEST PAIN X 1 WEEK, SOB, AND BACK PAIN COMPARISON: 08/30/2017 TECHNIQUE: PA and lateral. FINDINGS: The mediastinum and cardiac silhouette are normal. The lung cooper are clear and without acute consolidation, effusion, or pneumothorax. The skeletal structures are intact and normal. IMPRESSION: No acute cardiopulmonary process. <Electronically signed by Chilango Lindo > 12/28/20 [id number]
== END ==
LOC: M ADAMS 11:28
PROVIDERS: ATTEND Nurse Practitioner Family
DX: R07.9 Chest pain, unspecified (principal)

== ENCOUNTER → 2021-02-01 | Outpatient (CLI) | payer OTHER ==
--- NOTE | 2021-02-01 17:03 | REPMRS ---
Patient History The patient states she has not had a clinical breast exam in over a year. Family history of colorectal cancer at age 50 or over in maternal grandmother. Digital Woman Screen Mammo: February 01, 2021 - Exam #: [id number] Bilateral CC and MLO view(s) were taken. Technologist: Haven Garcia, Technologist Prior study comparison: June 28, 2018, bilateral digital woman screen mammo performed at [facility]. April 01, 2017, digital woman screen mammo performed at [facility]. April 26, 2015, bilateral digital mammo screening bilat, performed at [facility]. FINDINGS: The breast tissue is heterogeneously dense. This may lower the sensitivity of mammography. The Volpara volumetric breast density category is: C. There is a moderate amount of heterogeneously dense fibroglandular tissue which is fairly symmetric. There is no interval development of dominant mass, architectural distortion, or grouped microcalcification typical of malignancy. There has been no change in the appearance of the mammogram from the prior studies. 3-D tomosynthesis shows no additional findings. Assessment: BI-RADS/ACR category 1 mammogram. Negative Mammogram. Recommendation Routine screening mammogram of both breasts in 1 year (for women over age 40). This patient's [facility] Lifetime Breast Cancer RIsk is estimated at 6.9 %. This mammogram was interpreted with the aid of an FDA-approved computer-aided dectection system. Electronically Signed By: Archie Chavez MD 02/01/21 [id number]
== END ==
LOC: M WHC 13:59
PROVIDERS: ATTEND Student in an Organized Health Care Education/Training Program
DX: Z12.31 Encounter for screening mammogram for malignant neoplasm of breast (principal)

== ENCOUNTER → 2021-02-12 | Outpatient (CLI) | payer OTHER ==
--- NOTE | 2021-02-12 14:00 | REP ---
INDICATION: R WRIST PAIN AND SWELLING COMPARISON: None. TECHNIQUE: Four views right wrist. FINDINGS: There is no evidence of acute fracture, dislocation, or intrinsic bone disease.The joint spaces are unremarkable. IMPRESSION: No fracture or dislocation. <Electronically signed by Deandre Franco > 02/12/21 [id number]
== END ==
LOC: M RAD 13:37
PROVIDERS: ATTEND Physician Assistant Medical
DX: M25.532 Pain in left wrist (principal)

== ENCOUNTER → 2021-03-13 | Outpatient (CLI) | payer OTHER ==
[2021-03-13 17:39] LABS: CALCIUM LEVEL 9.2 MG/DL (8.5-10.1); CREATININE FOR GFR 1.1 MG/DL (0.55-1.30); GLOMERULAR FILTRATION RATE 55.1 (>51); POTASSIUM SERUM 3.5 MEQ/L (3.5-5.1)
[2021-03-13 18:48] LABS: HEMOGLOBIN A1c 5.6 %
== END ==
LOC: M LAB 16:52
PROVIDERS: ATTEND Student in an Organized Health Care Education/Training Program
DX: E11.9 Type 2 diabetes mellitus without complications (principal); I10 Essential (primary) hypertension; F17.200 Nicotine dependence, unspecified, uncomplicated

== ENCOUNTER → 2021-09-05 | Outpatient (REF) | payer OTHER ==
[~2021-09-05] MED LIST changes: -LISI2.5T2 PO; +LISI2.5T9 PO; +OMEP40CA4 PO; -OMEP40CA97 PO
[2021-09-05 14:19] LABS: HEMOGLOBIN A1c 5.8 %
[2021-09-05 14:28] LABS: BLOOD UREA NITROGEN 15 MG/DL (7-18); CALCIUM LEVEL 9.6 MG/DL (8.5-10.1); CARBON DIOXIDE LEVEL 28 MEQ/L (21-32); CHLORIDE LEVEL 109 MEQ/L (98-107); CHOLESTEROL LEVEL 157 MG/DL (<200); CHOLESTEROL RISK RATIO 2.492 (<5); CREATININE FOR GFR 0.94 MG/DL (0.55-1.30); GLOMERULAR FILTRATION RATE > 60.0 (>51); GLUCOSE, FASTING 115 MG/DL (70-100); HDL CHOLESTEROL 63 MG/DL (>40); LDL CHOLESTEROL 74 MG/DL (<100); NON-HDL-C 94 MG/DL; POTASSIUM SERUM 4.2 MEQ/L (3.5-5.1); SODIUM LEVEL 142 MEQ/L (136-145); TRIGLYCERIDES LEVEL 100 MG/DL (<150)
== END ==
LOC: M SFHCPLAZ 09:56
PROVIDERS: ATTEND Family Medicine
DX: E11.9 Type 2 diabetes mellitus without complications (principal); E78.00 Pure hypercholesterolemia, unspecified

== ENCOUNTER → 2021-09-05 | Outpatient (REF) | payer OTHER ==
[~2021-09-05] MED LIST changes: -OMEP-221; +OMEP40CA5
== END ==
LOC: M LABDRWAD 12:37
PROVIDERS: ATTEND Student in an Organized Health Care Education/Training Program
DX: E11.9 Type 2 diabetes mellitus without complications (principal); E78.00 Pure hypercholesterolemia, unspecified

== ENCOUNTER → 2022-01-01 | Outpatient (CLI) | payer OTHER | LOC: M RAD 08:20 | PROVIDERS: ATTEND Physician Assistant | DX: R91.8 Other nonspecific abnormal finding of lung field (principal) ==

== ENCOUNTER → 2022-02-05 | Outpatient (CLI) | payer OTHER | LOC: M WUC 10:24 | PROVIDERS: ATTEND Student in an Organized Health Care Education/Training Program | DX: M25.562 Pain in left knee (principal) ==

== ENCOUNTER → 2022-02-14 | Outpatient (CLI) | payer OTHER ==
[2022-02-14 10:22] LABS: BASO % 0.2 % (0.0-1.0); EOS # 0.1 10^3/uL (0.0-0.5); EOS % 0.8 % (0.0-3.0); HEMATOCRIT 43.3 % (36.0-47.0); HEMOGLOBIN 14.1 g/dl (12.0-15.5); LYMPH # 3.2 10^3/uL (1.5-5.0); LYMPH % 29.8 % (24.0-44.0); MEAN CORPUSCULAR HEMOGLOBIN 31.1 pg (27.0-33.0); MEAN CORPUSCULAR HGB CONC 32.6 g/dl (32.0-36.5); MEAN CORPUSCULAR VOLUME 95.6 fl (80.0-96.0); MONO # 0.7 10^3/uL (0.0-0.8); MONO % 6.7 % (2.0-8.0); NEUTROPHILS # 6.6 10^3/uL (1.5-8.5); NEUTROPHILS % 61.9 % (36.0-66.0); PLATELET COUNT, AUTOMATED 249 10^3/uL (150-450); RED BLOOD COUNT 4.53 10^6/uL (4.00-5.40); WHITE BLOOD COUNT 10.6 10^3/uL (4.0-10.0)
[2022-02-14 10:49] LABS: HEMOGLOBIN A1c 5.5 %
[2022-02-14 10:54] LABS: ALBUMIN 3.8 GM/DL (3.2-5.2); BILIRUBIN,TOTAL 0.3 MG/DL (0.2-1.0); CALCIUM LEVEL 10.3 MG/DL (8.5-10.1); CREATININE FOR GFR 1.02 MG/DL (0.55-1.30); GLOMERULAR FILTRATION RATE 59.9 (>51); MAGNESIUM LEVEL 1.8 MG/DL (1.8-2.4); POTASSIUM SERUM 4.4 MEQ/L (3.5-5.1); TOTAL PROTEIN 7.2 GM/DL (6.4-8.2)
== END ==
LOC: M LAB 09:44
PROVIDERS: ATTEND Student in an Organized Health Care Education/Training Program
DX: K21.9 Gastro-esophageal reflux disease without esophagitis (principal); I10 Essential (primary) hypertension; E11.9 Type 2 diabetes mellitus without complications

== ENCOUNTER → 2022-03-10 | Outpatient (CLI) | payer OTHER | LOC: M RAD 09:39 | PROVIDERS: ATTEND Orthopaedic Surgery | DX: M17.9 Osteoarthritis of knee, unspecified (principal) ==

== ENCOUNTER → 2022-03-19 | Outpatient (REF) | payer OTHER ==
[~2022-03-19] MED LIST changes: +ASPI81TA26 PO; -OMEP40CA5; +OMEP40CA5 PO
[2022-03-19 13:04] LABS: BASO % 0.2 % (0.0-1.0); EOS # 0.2 10^3/uL (0.0-0.5); EOS % 2.1 % (0.0-3.0); HEMATOCRIT 42.7 % (36.0-47.0); HEMOGLOBIN 13.9 g/dl (12.0-15.5); LYMPH # 2.9 10^3/uL (1.5-5.0); LYMPH % 33.1 % (24.0-44.0); MEAN CORPUSCULAR HGB CONC 32.6 g/dl (32.0-36.5); MEAN CORPUSCULAR VOLUME 95.3 fl (80.0-96.0); MONO # 0.5 10^3/uL (0.0-0.8); MONO % 5.2 % (2.0-8.0); NEUTROPHILS # 5.1 10^3/uL (1.5-8.5); NEUTROPHILS % 59.2 % (36.0-66.0); PLATELET COUNT, AUTOMATED 241 10^3/uL (150-450); RED BLOOD COUNT 4.48 10^6/uL (4.00-5.40); WHITE BLOOD COUNT 8.7 10^3/uL (4.0-10.0)
[2022-03-19 13:17] LABS: BLOOD UREA NITROGEN 10 MG/DL (7-18); CALCIUM LEVEL 10.2 MG/DL (8.5-10.1); CARBON DIOXIDE LEVEL 27 MEQ/L (21-32); CHLORIDE LEVEL 112 MEQ/L (98-107); CREATININE FOR GFR 0.95 MG/DL (0.55-1.30); GLOMERULAR FILTRATION RATE > 60.0 (>51); GLUCOSE, FASTING 100 MG/DL (70-100); POTASSIUM SERUM 4.3 MEQ/L (3.5-5.1); SODIUM LEVEL 143 MEQ/L (136-145)
== END ==
LOC: M SFHCPLAZ 09:01
PROVIDERS: ATTEND Family Medicine
DX: I10 Essential (primary) hypertension (principal); E83.52 Hypercalcemia

== ENCOUNTER → 2022-03-20 | Outpatient (CLI) | payer OTHER | LOC: M LABSMTC 10:17 | PROVIDERS: ATTEND Anesthesiology | DX: Z01.818 Encounter for other preprocedural examination (principal); Z11.52 Encounter for screening for COVID-19 ==

== ENCOUNTER 2022-03-25 07:19 | Day surgery (SDC) | payer OTHER ==
[~2022-03-25] VITALS: Ht 167.6 cm; Wt 72.5 kg
[~2022-03-25 07:19] MED LIST changes: +TRANEXAMIC ACID 100 MG/ML 10ML VIAL IV ONE; +ceFAZolin SOD 2 GM in IV 1 EA IV ONE; +oxyCODONE 5MG TAB PO ONE
[2022-03-25] MEDS ORDERED: LR 1,000 ML IV SCH ×2 (07:35→11:30)
[2022-03-25] MEDS ORDERED: INSULIN LISPRO (NovoLOG) PER UNIT SC PRN (07:35)
[2022-03-25] MEDS ORDERED: EPINEPHrine 1MG/ML INJ 30ML MD-VIAL As Ordered ONE (09:41)
[2022-03-25] MEDS ORDERED: BUPIVACAINE/EPIN 0.25% 30 ML VIAL As Ordered ONE (09:41)
[2022-03-25] MEDS ORDERED: TRANEXAMIC ACID 100 MG/ML 10ML VIAL As Ordered ONE (10:06)
[2022-03-25] MEDS ORDERED: ACETAMINOPHEN 1000MG 100ML IV BTL (OFIRMEV) (J0131 PER 10MG) As Ordered ONE (10:26)
[2022-03-25] MEDS ORDERED: LIDOCAINE 2% 100MG/5ML SDV (FOR ANES.) As Ordered ONE (10:26)
[2022-03-25] MEDS ORDERED: KETOROLAC 60MG 2ML VIAL As Ordered ONE (10:26)
[2022-03-25] MEDS ORDERED: propofoL 200 MG/20 ML VIAL As Ordered ONE (10:26)
[2022-03-25] MEDS ORDERED: ONDANSETRON 4MG/2ML VIAL As Ordered ONE (10:26)
[2022-03-25] MEDS ORDERED: fentaNYL 100 MCG/2 ML INJECTION As Ordered ONE (10:26)
[2022-03-25] MEDS ORDERED: MIDAZOLAM INJ 2MG/2ML VIAL (J2250 PER 1MG) As Ordered ONE (10:26)
[2022-03-25] MEDS ORDERED: dexameTHASONE 4 MG/ML 1ML VIAL (J1100 PER 1MG) As Ordered ONE (10:26)
[2022-03-25] MEDS ORDERED: fentaNYL 100 MCG/2 ML INJECTION IV PRN (11:30)
[2022-03-25] MEDS ORDERED: ONDANSETRON 4MG/2ML VIAL IV PRN (11:30)
[2022-03-25] MEDS ORDERED: OXYC1TAB23 PO (11:33)
[2022-03-25] MEDS: oxyCODONE 5MG TAB PO PRN ×2 (11:50→12:18)
[2022-03-25] MEDS: MORPHINE 2 MG/ML 1ML VIAL IV PRN ×4 (11:51→12:27)
[2022-03-25 13:02] VITALS: BP 152/72
== END 2022-03-25 13:25 | disposition home or self-care (01) ==
LOC: M SDC 07:19
PROVIDERS: ATTEND Orthopaedic Surgery
DX: M23.262 Derangement of other lateral meniscus due to old tear or injury, left knee (principal); M23.232 Derangement of other medial meniscus due to old tear or injury, left knee; I10 Essential (primary) hypertension; E78.5 Hyperlipidemia, unspecified; E11.9 Type 2 diabetes mellitus without complications; K21.9 Gastro-esophageal reflux disease without esophagitis; F17.210 Nicotine dependence, cigarettes, uncomplicated; Z98.61 Coronary angioplasty status; G47.33 Obstructive sleep apnea (adult) (pediatric); M10.9 Gout, unspecified; Z79.84 Long term (current) use of oral hypoglycemic drugs; Z79.82 Long term (current) use of aspirin; Z79.899 Other long term (current) drug therapy
CPT/HCPCS: 29880; J0131; J0171; J0690; J1100; J1885; J2250; J2270; J2405; J3010

== ENCOUNTER 2022-08-05 10:14 | Emergency (ER) | payer OTHER ==
[~2022-08-05] VITALS: Ht 167.6 cm; Wt 70.5 kg
[~2022-08-05 10:14] MED LIST changes: +OXYC1TAB23 PO; -TRANEXAMIC ACID 100 MG/ML 10ML VIAL IV ONE; -ceFAZolin SOD 2 GM in IV 1 EA IV ONE; -oxyCODONE 5MG TAB PO ONE
[2022-08-05 13:58] VITALS: BP 160/83
== END 2022-08-05 13:59 | disposition home or self-care (01) ==
LOC: M ED 10:14
DX: S92.514A Nondisplaced fracture of proximal phalanx of right lesser toe(s), initial encounter for closed fracture (principal); X58.XXXA Exposure to other specified factors, initial encounter; Y92.099 Unspecified place in other non-institutional residence as the place of occurrence of the external cause; Z79.82 Long term (current) use of aspirin; Z79.899 Other long term (current) drug therapy; Z91.030 Bee allergy status

== ENCOUNTER → 2022-08-13 | Outpatient (CLI) | payer OTHER | LOC: M SOG 11:34 | PROVIDERS: ATTEND Orthopaedic Surgery Adult Reconstructive Orthopaedic Surgery | DX: S92.514A Nondisplaced fracture of proximal phalanx of right lesser toe(s), initial encounter for closed fracture (principal); X58.XXXA Exposure to other specified factors, initial encounter; M77.31 Calcaneal spur, right foot ==

== ENCOUNTER → 2022-09-08 | Outpatient (CLI) | payer OTHER | LOC: M SOG 08:52 | PROVIDERS: ATTEND Orthopaedic Surgery Adult Reconstructive Orthopaedic Surgery | DX: M79.671 Pain in right foot (principal); M79.674 Pain in right toe(s) ==

== ENCOUNTER 2022-10-13 19:06 | Emergency (ER) | payer OTHER ==
[~2022-10-13] VITALS: Ht 170.2 cm; Wt 72.7 kg
[2022-10-13 19:21] VITALS: BP 145/70
[2022-10-13] MEDS ORDERED: HYDROMORPHONE HCL 0.5 MG/ 0.5 ML SYRINGE (J1170 PER 1) IM ONE (22:50)
[2022-10-14] MEDS ORDERED: PRED20TA PO (00:03)
[2022-10-14] MEDS ORDERED: predniSONE 20 MG TAB PO ONE (00:05)
== END 2022-10-14 00:13 | disposition home or self-care (01) ==
LOC: M ED 19:06 → EDBD 19:06 → M ED 10-14 00:13
DX: M54.42 Lumbago with sciatica, left side (principal); E11.9 Type 2 diabetes mellitus without complications; K21.9 Gastro-esophageal reflux disease without esophagitis; J44.9 Chronic obstructive pulmonary disease, unspecified; I10 Essential (primary) hypertension; I25.10 Atherosclerotic heart disease of native coronary artery without angina pectoris; F17.200 Nicotine dependence, unspecified, uncomplicated; Z79.84 Long term (current) use of oral hypoglycemic drugs; Z79.82 Long term (current) use of aspirin; Z79.891 Long term (current) use of opiate analgesic; Z79.899 Other long term (current) drug therapy; Z91.030 Bee allergy status
CPT/HCPCS: 72110; 76775; 96372; 99284; J1170; J7512

== ENCOUNTER → 2022-10-21 | Outpatient (REF) | payer OTHER ==
[2022-10-21 15:18] LABS: COLOR, URINE MANUAL LT YELLOW (YELLOW)
[2022-10-21 15:19] LABS: APPEARANCE, URINE MANUAL CLEAR (CLEAR); BILIRUBIN, URINE MANUAL NEGATIVE (NEGATIVE); BLOOD URINE MANUAL NEGATIVE (NEGATIVE); GLUCOSE, URINE (UA) MANUAL NEGATIVE (NEGATIVE); KETONE, URINE MANUAL NEGATIVE (NEGATIVE); LEUKOCYTE ESTERASE, URINE MAN NEGATIVE (NEGATIVE); NITRITE, URINE MANUAL NEGATIVE (NEGATIVE); PROTEIN, URINE MANUAL NEGATIVE (NEGATIVE); UROBILINOGEN, URINE MANUAL NORMAL (NORMAL)
== END ==
LOC: M LAB REF 12:33
PROVIDERS: ATTEND Physician Assistant Medical
DX: N39.0 Urinary tract infection, site not specified (principal)

== ENCOUNTER → 2022-11-03 | Outpatient (CLI) | payer OTHER ==
[~2022-11-03] MED LIST changes: -ASMA1AER3 INH; +MOME13HF5 INH
== END ==
LOC: M PLALAB 08:46
PROVIDERS: ATTEND Student in an Organized Health Care Education/Training Program
DX: Z13.820 Encounter for screening for osteoporosis (principal)

== ENCOUNTER → 2022-11-03 | Outpatient (CLI) | payer OTHER ==
[2022-11-03 15:42] LABS: BLOOD UREA NITROGEN 14 MG/DL (9-23); CREATININE FOR GFR 0.82 MG/DL (0.55-1.30); GLOMERULAR FILTRATION RATE > 60.0 (>51)
== END ==
LOC: M PLALAB 12:50
PROVIDERS: ATTEND Nurse Practitioner Family
DX: G89.29 Other chronic pain (principal)

== ENCOUNTER → 2022-11-06 | Outpatient (CLI) | payer OTHER | LOC: M WHC 07:33 | PROVIDERS: ATTEND Student in an Organized Health Care Education/Training Program | DX: Z12.31 Encounter for screening mammogram for malignant neoplasm of breast (principal) ==

== ENCOUNTER → 2022-11-27 | Outpatient (CLI) | payer OTHER | LOC: M PLAIMG 08:18 | PROVIDERS: ATTEND Orthopaedic Surgery Adult Reconstructive Orthopaedic Surgery | DX: S92.514D Nondisplaced fracture of proximal phalanx of right lesser toe(s), subsequent encounter for fracture with routine healing (principal) ==

== ENCOUNTER → 2023-01-14 | Outpatient (CLI) | payer OTHER | LOC: M RAD 12:21 | PROVIDERS: ATTEND Physician Assistant | DX: Z87.891 Personal history of nicotine dependence (principal) ==

== ENCOUNTER → 2023-03-03 | Outpatient (REF) | payer OTHER | LOC: M SFHCPLAZ 16:06 | PROVIDERS: ATTEND Student in an Organized Health Care Education/Training Program | DX: J02.9 Acute pharyngitis, unspecified (principal) ==

== ENCOUNTER → 2023-11-03 | Outpatient (REF) | payer OTHER | LOC: M SFHCPLAZ 14:27 | PROVIDERS: ATTEND Family Medicine | DX: Z53.9 Procedure and treatment not carried out, unspecified reason (principal) ==

== ENCOUNTER → 2023-11-27 | Outpatient (CLI) | payer OTHER ==
[2023-11-27 10:54] LABS: HEMATOCRIT 45.6 % (36.0-47.0); HEMOGLOBIN 15.1 g/dl (12.0-15.5); MEAN CORPUSCULAR HEMOGLOBIN 31.8 pg (27.0-33.0); MEAN CORPUSCULAR HGB CONC 33.1 g/dl (32.0-36.5); PLATELET COUNT, AUTOMATED 239 10^3/uL (150-450); RED BLOOD COUNT 4.75 10^6/uL (4.00-5.40); WHITE BLOOD COUNT 6.8 10^3/uL (4.0-10.0)
[2023-11-27 11:00] LABS: CALCIUM LEVEL 9.9 MG/DL (8.5-10.1); CREATININE FOR GFR 1.02 MG/DL (0.55-1.30); GLOMERULAR FILTRATION RATE 59.5 (>51); POTASSIUM SERUM 5.3 MMOL/L (3.5-5.1)
[2023-11-27 11:01] LABS: PTH INTACT 54.1 PG/ML (18.5-88.0)
[2023-11-27 11:03] LABS: TOTAL 25(OH) VITAMIN D 36.8 NG/ML (20.0-100.0)
[2023-11-27 11:43] LABS: HEMOGLOBIN A1c 5.7 % (4.0-6.0)
== END ==
LOC: M PLALAB 07:37
PROVIDERS: ATTEND Student in an Organized Health Care Education/Training Program
DX: I10 Essential (primary) hypertension (principal); K21.9 Gastro-esophageal reflux disease without esophagitis

== ENCOUNTER → 2023-11-27 | Outpatient (CLI) | payer OTHER | LOC: M WHC 07:34 | PROVIDERS: ATTEND Student in an Organized Health Care Education/Training Program | DX: M81.0 Age-related osteoporosis without current pathological fracture (principal) ==

== ENCOUNTER → 2024-01-04 | Outpatient (CLI) | payer OTHER | LOC: M PLAIMG 14:45 | PROVIDERS: ATTEND Student in an Organized Health Care Education/Training Program | DX: J06.9 Acute upper respiratory infection, unspecified (principal) ==

== ENCOUNTER → 2024-01-19 | Outpatient (REF) | payer OTHER | LOC: M SFHCPLAZ 12:29 | PROVIDERS: ATTEND Student in an Organized Health Care Education/Training Program | DX: R05.1 Acute cough (principal) ==

== ENCOUNTER → 2024-02-04 | Outpatient (CLI) | payer OTHER | LOC: M RAD 09:27 | PROVIDERS: ATTEND Physician Assistant | DX: Z87.891 Personal history of nicotine dependence (principal) ==

== ENCOUNTER → 2024-04-22 | Outpatient (CLI) | payer OTHER | LOC: M WUC 13:00 | PROVIDERS: ATTEND Physician Assistant | DX: S93.601A Unspecified sprain of right foot, initial encounter (principal); Y93.9 Activity, unspecified; Y92.9 Unspecified place or not applicable ==

== ENCOUNTER 2024-06-21 09:17 | Observation (INO) | payer OTHER ==
[~2024-06-21] VITALS: Ht 167.6 cm; Wt 74.9 kg
[2024-06-21] MEDS ORDERED: ADV250INH (09:35)
[2024-06-21 11:22] LABS: BASO % 0.5 % (0.0-1.0); EOS # 0.2 10^3/uL (0.0-0.5); EOS % 3.2 % (0.0-3.0); HEMATOCRIT 37.9 % (36.0-47.0); HEMOGLOBIN 12.6 g/dl (12.0-15.5); LYMPH % 30.1 % (24.0-44.0); MEAN CORPUSCULAR HEMOGLOBIN 31.5 pg (27.0-33.0); MEAN CORPUSCULAR HGB CONC 33.2 g/dl (32.0-36.5); MEAN CORPUSCULAR VOLUME 94.8 fl (80.0-96.0); MONO # 0.6 10^3/uL (0.0-0.8); MONO % 8.5 % (2.0-8.0); NEUTROPHILS # 3.8 10^3/uL (1.5-8.5); NEUTROPHILS % 57.4 % (36.0-66.0); PLATELET COUNT, AUTOMATED 238 10^3/uL (150-450); WHITE BLOOD COUNT 6.6 10^3/uL (4.0-10.0)
[2024-06-21 11:37] LABS: INR 0.94; PARTIAL THROMBOPLASTIN TIME 24.7 SECONDS (24.8-34.2); PROTHROMBIN TIME 12.3 SECONDS (12.5-14.5)
[2024-06-21 11:48] LABS: CREATININE FOR GFR 2.16 MG/DL (0.55-1.30); GLOMERULAR FILTRATION RATE 24.9 (>51); POTASSIUM SERUM 5.2 MMOL/L (3.5-5.1)
[2024-06-21 11:49] LABS: CK-MB VALUE MASS 1.9 NG/ML (<3.6); MB/CK RELATIVE INDEX 1.5 (< OR =4)
[2024-06-21 11:53] LABS: THYROID STIMULATING HORMONE 1.607 uIU/ML (0.55-4.78)
[2024-06-21] MEDS: NS 1,000 ML IV ONE (12:52)
[2024-06-21 13:17] LABS: CK-MB VALUE MASS 1.9 NG/ML (<3.6); MB/CK RELATIVE INDEX 1.57 (< OR =4)
[2024-06-21] MEDS ORDERED: FLUT1BLS5 INH (14:10)
[2024-06-21] MEDS ORDERED: D-101000 PO (14:10)
[2024-06-21] MEDS ORDERED: ATOR80TA59 PO (14:10)
[2024-06-21] MEDS ORDERED: LISI20TA35 PO (14:10)
[2024-06-21] MEDS ORDERED: ASPI-615 PO (14:10)
[2024-06-21] MEDS ORDERED: HYDR-4514 PO (14:10)
[2024-06-21] MEDS ORDERED: CYCL-707 PO (14:10)
[2024-06-21] MEDS ORDERED: HOME MED LIST COMPLETE! XX SCH (14:15)
[2024-06-21] MEDS ORDERED: ANEXSIA, NORCO 7.5MG/325MG TABLET(HYDROCODONE/APAP) PO PRN (14:20)
[2024-06-21] MEDS ORDERED: ALBUTEROL 90 MCG/ACT 8GM HFA INHALER INH PRN (14:20)
[2024-06-21 14:44] LABS: APPEARANCE, URINE CLEAR (CLEAR); BACTERIA, URINE AUTO NEGATIVE (NEGATIVE); BILIRUBIN, URINE AUTO NEGATIVE (NEGATIVE); BLOOD, URINE BLOOD NEGATIVE (NEGATIVE); COLOR, URINE STRAW (YELLOW); GLUCOSE, URINE (UA) AUTO NEGATIVE (NEGATIVE); KETONE, URINE AUTO NEGATIVE (NEGATIVE); LEUKOCYTE ESTERASE, URINE AUTO NEGATIVE (NEGATIVE); NITRITE, URINE AUTO NEGATIVE (NEGATIVE); PROTEIN, URINE AUTO NEGATIVE (NEGATIVE); RBC, URINE AUTO 0 /HPF (0-3); SPECIFIC GRAVITY URINE AUTO 1.009 (1.002-1.035); SQUAMOUS EPITHELIAL CELL UR AU 0 /HPF (0-6); UROBILINOGEN, URINE AUTO 0.2 mg/dL (0.0-2.0); WBC, URINE AUTO 2 /HPF (0-3)
[2024-06-21 14:50] LABS: MAGNESIUM LEVEL 1.6 MG/DL (1.8-2.4); POTASSIUM SERUM 4.9 MMOL/L (3.5-5.1)
[2024-06-21 16:11] VITALS: BP_SYST 117; BP_SYST 139; BP_SYST 141; BP_DIAS 56; BP_DIAS 64
[2024-06-21 16:15] LABS: HEMOGLOBIN A1c 5.8 % (4.0-6.0)
[2024-06-21] MEDS ORDERED: GLUCAGON INJ 1MG VIAL SC PRN (16:30)
[2024-06-21] MEDS ORDERED: GLUCOSE 4 GM CHEW PO PRN (16:30)
[2024-06-21] MEDS ORDERED: DEXTROSE 50% 50ML SYRINGE IV PRN (16:30)
[2024-06-21] MEDS: NS 1,000 ML IV SCH (16:49)
[2024-06-21] MEDS: MAG SULF 1GM/100ML (MAG RUN) 1 GM in IV 1 EA IV SCH (18:22)
[2024-06-21] MEDS: INSULIN LISPRO (NovoLOG) PER UNIT SC SCH ×2 (18:22→20:43)
[2024-06-21 19:16] VITALS: BP 102/53; TEMP 97.8; O2SAT 93
[2024-06-21] MEDS: ADVAIR HFA 115/21MCG INHALER INH SCH (20:00)
[2024-06-21] MEDS: CYCLOBENZAPRINE 10MG TABLET PO SCH (20:50)
[2024-06-21] MEDS: CARVedilol 3.125 MG TAB PO SCH (20:50)
[2024-06-21] MEDS: ASPIRIN 81MG ENTERIC TABLET PO SCH (20:50)
[2024-06-21] MEDS: ATORVASTATIN 20 MG TAB PO SCH (20:50)
[2024-06-21] MEDS: MORPHINE 15 MG SA TAB PO SCH (20:51)
[2024-06-21] MEDS: HEPARIN SOD (PORCINE) 5000UNITS/ML 1ML VIAL/SYRINGE SC SCH (20:51)
[2024-06-21] MEDS: HYDROCORTISONE 1% CREAM 30GM TOP ONE (20:52)
[2024-06-21] MEDS ORDERED: CARVedilol 3.125 MG TAB PO SCH (21:00)
[2024-06-21 21:37] LABS: CREATININE,RANDOM URINE 33.9 MG/DL
[2024-06-21 23:27] VITALS: BP 117/56; TEMP 97.9; O2SAT 97
[2024-06-21 23:29] VITALS: BP_SYST 117; BP_SYST 123; BP_SYST 133; BP_DIAS 56; BP_DIAS 62
[2024-06-22 03:56] VITALS: BP 101/64; TEMP 97.9; O2SAT 98
[2024-06-22 05:08] LABS: BASO % 0.5 % (0.0-1.0); EOS # 0.2 10^3/uL (0.0-0.5); EOS % 4.8 % (0.0-3.0); HEMOGLOBIN 11.1 g/dl (12.0-15.5); LYMPH # 1.8 10^3/uL (1.5-5.0); LYMPH % 41.6 % (24.0-44.0); MEAN CORPUSCULAR HEMOGLOBIN 31.1 pg (27.0-33.0); MEAN CORPUSCULAR HGB CONC 32.6 g/dl (32.0-36.5); MEAN CORPUSCULAR VOLUME 95.2 fl (80.0-96.0); MONO # 0.5 10^3/uL (0.0-0.8); MONO % 10.4 % (2.0-8.0); NEUTROPHILS # 1.9 10^3/uL (1.5-8.5); NEUTROPHILS % 42.5 % (36.0-66.0); PLATELET COUNT, AUTOMATED 229 10^3/uL (150-450); RED BLOOD COUNT 3.57 10^6/uL (4.00-5.40); WHITE BLOOD COUNT 4.4 10^3/uL (4.0-10.0)
[2024-06-22 05:34] LABS: CALCIUM LEVEL 9.7 MG/DL (8.5-10.1); CREATININE FOR GFR 1.52 MG/DL (0.55-1.30); GLOMERULAR FILTRATION RATE 37.4 (>51); MAGNESIUM LEVEL 2.2 MG/DL (1.8-2.4); POTASSIUM SERUM 4.5 MMOL/L (3.5-5.1)
[2024-06-22 07:23] VITALS: BP 128/60; TEMP 97.7; O2SAT 95
[2024-06-22] MEDS: OMEPRAZOLE 20MG CAP PO SCH (08:10)
[2024-06-22] MEDS: VITAMIN D 1,000 INTERNATIONAL UNITS TABLET PO SCH (08:10)
[2024-06-22 08:11] VITALS: BP 128/60
[2024-06-22] MEDS: CARVedilol 3.125 MG TAB PO SCH (08:11)
[2024-06-22 08:48] VITALS: BP_SYST 112; BP_SYST 119; BP_DIAS 55; BP_DIAS 57; BP_DIAS 59
[2024-06-22 14:54] LABS: CALCIUM LEVEL 9.6 MG/DL (8.5-10.1); CREATININE FOR GFR 1.38 MG/DL (0.55-1.30); GLOMERULAR FILTRATION RATE 41.8 (>51); POTASSIUM SERUM 4.5 MMOL/L (3.5-5.1)
== END 2024-06-22 15:30 | disposition home or self-care (01) ==
LOC: M ED 09:17 → M ED INP 09:18 → M PCU 16:10
PROVIDERS: ADMIT Internal Medicine; ATTEND Internal Medicine
DX: R55 Syncope and collapse (principal); N17.9 Acute kidney failure, unspecified; E87.5 Hyperkalemia; R21 Rash and other nonspecific skin eruption; E11.9 Type 2 diabetes mellitus without complications; I10 Essential (primary) hypertension; I25.10 Atherosclerotic heart disease of native coronary artery without angina pectoris; Z95.5 Presence of coronary angioplasty implant and graft; J44.9 Chronic obstructive pulmonary disease, unspecified; M54.9 Dorsalgia, unspecified; K21.9 Gastro-esophageal reflux disease without esophagitis; E78.00 Pure hypercholesterolemia, unspecified; E55.9 Vitamin D deficiency, unspecified; R06.02 Shortness of breath; R07.89 Other chest pain; R05.9 Cough, unspecified; M62.838 Other muscle spasm; H53.8 Other visual disturbances; F17.210 Nicotine dependence, cigarettes, uncomplicated; Z90.5 Acquired absence of kidney; Z87.81 Personal history of (healed) traumatic fracture; Z91.030 Bee allergy status; Z82.49 Family history of ischemic heart disease and other diseases of the circulatory system; Z79.899 Other long term (current) drug therapy; Z79.82 Long term (current) use of aspirin; Z79.84 Long term (current) use of oral hypoglycemic drugs; Z79.891 Long term (current) use of opiate analgesic
CPT/HCPCS: 36415; 70551; 71045; 76775; 80048; 81001; 82550; 82553; 82570; 83036; 83735; 84132; 84133; 84300; 84443; 84484; 85025; 85610; 85730; 93005; 93041; 93306; 94760; 96361; 96365; 96372; 97161; 99285; J1815; J3475

== ENCOUNTER → 2024-06-24 | Outpatient (REF) | payer OTHER ==
[~2024-06-24] MED LIST changes: +ADV250INH; +ASPI-615 PO; +ATOR80TA59 PO; +D-101000 PO; +FLUT1BLS5 INH; +HYDR-4514 PO; +LISI20TA35 PO
[2024-06-24 13:36] LABS: CALCIUM LEVEL 10.6 MG/DL (8.5-10.1); CREATININE FOR GFR 1.47 MG/DL (0.55-1.30); GLOMERULAR FILTRATION RATE 38.9 (>51); POTASSIUM SERUM 4.9 MMOL/L (3.5-5.1)
== END ==
LOC: M LABDRWAD 12:16
PROVIDERS: ATTEND Internal Medicine
DX: N17.9 Acute kidney failure, unspecified (principal)

== ENCOUNTER → 2024-07-13 | Outpatient (CLI) | payer OTHER ==
[2024-07-13 14:21] LABS: CALCIUM LEVEL 10.1 MG/DL (8.5-10.1); CREATININE FOR GFR 1.01 MG/DL (0.55-1.30); GLOMERULAR FILTRATION RATE 59.9 (>51); POTASSIUM SERUM 4.5 MMOL/L (3.5-5.1)
== END ==
LOC: M PLALAB 10:16
PROVIDERS: ATTEND Student in an Organized Health Care Education/Training Program
DX: D50.9 Iron deficiency anemia, unspecified (principal)

== ENCOUNTER → 2024-07-16 | Outpatient (REF) | payer OTHER | LOC: M LAB REF 10:45 | DX: B34.9 Viral infection, unspecified (principal) ==

== ENCOUNTER → 2024-08-29 | Outpatient (CLI) | payer OTHER ==
[2024-08-29 13:24] LABS: BLOOD UREA NITROGEN 15 MG/DL (9-23); CALCIUM LEVEL 9.7 MG/DL (8.5-10.1); CARBON DIOXIDE LEVEL 28 MMOL/L (20-31); CHLORIDE LEVEL 109 MMOL/L (98-107); CHOLESTEROL LEVEL 157 MG/DL (<200); CREATININE FOR GFR 0.78 MG/DL (0.55-1.30); GLOMERULAR FILTRATION RATE > 60.0 (>51); GLUCOSE, FASTING 100 MG/DL (60-100); HDL CHOLESTEROL 60.3 MG/DL (>40); LDL CHOLESTEROL 68.5 MG/DL (<100); MAGNESIUM LEVEL 1.7 MG/DL (1.8-2.4); NON-HDL-C 96.7 MG/DL; POTASSIUM SERUM 4.4 MMOL/L (3.5-5.1); SODIUM LEVEL 142 MMOL/L (136-145); TRIGLYCERIDES LEVEL 141 MG/DL (<150)
== END ==
LOC: M PLALAB 10:09
PROVIDERS: ATTEND Registered Nurse
DX: I25.10 Atherosclerotic heart disease of native coronary artery without angina pectoris (principal)

== ENCOUNTER → 2024-10-03 | Outpatient (REF) | payer OTHER ==
[~2024-10-03] MED LIST changes: -ADV250INH; +ADVA1AER9
[2024-10-03 13:17] LABS: ALBUMIN 3.6 G/DL (3.2-5.2); BLOOD UREA NITROGEN 15 MG/DL (9-23); CALCIUM LEVEL 10.3 MG/DL (8.5-10.1); CARBON DIOXIDE LEVEL 28 MMOL/L (20-31); CHLORIDE LEVEL 104 MMOL/L (98-107); CREATININE FOR GFR 0.96 MG/DL (0.55-1.30); GLOMERULAR FILTRATION RATE > 60.0 (>51); GLUCOSE, FASTING 112 MG/DL (60-100); PHOSPHORUS LEVEL 4.2 MG/DL (2.5-4.9); POTASSIUM SERUM 5.1 MMOL/L (3.5-5.1); SODIUM LEVEL 139 MMOL/L (136-145)
== END ==
LOC: M LAB REF 12:53
PROVIDERS: ATTEND Registered Nurse
DX: I10 Essential (primary) hypertension (principal)

== ENCOUNTER → 2024-10-18 | Outpatient (CLI) | payer OTHER ==
[2024-10-18 10:40] LABS: ALBUMIN 3.4 G/DL (3.2-5.2); BLOOD UREA NITROGEN 21 MG/DL (9-23); CALCIUM LEVEL 10.2 MG/DL (8.5-10.1); CARBON DIOXIDE LEVEL 28 MMOL/L (20-31); CHLORIDE LEVEL 104 MMOL/L (98-107); CREATININE FOR GFR 0.93 MG/DL (0.55-1.30); GLOMERULAR FILTRATION RATE > 60.0 (>51); GLUCOSE, FASTING 107 MG/DL (60-100); PHOSPHORUS LEVEL 4.6 MG/DL (2.5-4.9); POTASSIUM SERUM 5.3 MMOL/L (3.5-5.1); SODIUM LEVEL 140 MMOL/L (136-145)
== END ==
LOC: M PLALAB 08:55
PROVIDERS: ATTEND Registered Nurse
DX: I10 Essential (primary) hypertension (principal)

== ENCOUNTER → 2024-11-04 | Outpatient (CLI) | payer OTHER ==
[2024-11-04 11:21] LABS: ALBUMIN 3.6 G/DL (3.2-5.2); BLOOD UREA NITROGEN 14 MG/DL (9-23); CALCIUM LEVEL 9.4 MG/DL (8.5-10.1); CARBON DIOXIDE LEVEL 28 MMOL/L (20-31); CHLORIDE LEVEL 107 MMOL/L (98-107); CREATININE FOR GFR 0.86 MG/DL (0.55-1.30); GLOMERULAR FILTRATION RATE > 60.0 (>51); GLUCOSE, FASTING 98 MG/DL (60-100); PHOSPHORUS LEVEL 4.2 MG/DL (2.5-4.9); POTASSIUM SERUM 4.8 MMOL/L (3.5-5.1); SODIUM LEVEL 141 MMOL/L (136-145)
== END ==
LOC: M PLALAB 08:13
PROVIDERS: ATTEND Registered Nurse
DX: I10 Essential (primary) hypertension (principal)

== ENCOUNTER → 2024-12-21 | Outpatient (CLI) | payer OTHER | LOC: M WHC 06:41 | PROVIDERS: ATTEND Family Medicine | DX: Z12.31 Encounter for screening mammogram for malignant neoplasm of breast (principal) ==

== ENCOUNTER → 2025-02-08 | Outpatient (CLI) | payer OTHER ==
[~2025-02-08] MED LIST changes: +ADVA1AER9 INH; +AMLO1TAB25 PO; +CARV12.5 PO; +MAG-400T7 PO; +MORP30TASA PO; +NITR0.4S14
[2025-02-08 17:39] LABS: BASO % 0.4 % (0.0-1.0); EOS # 0.2 10^3/uL (0.0-0.5); EOS % 1.9 % (0.0-3.0); HEMATOCRIT 41.9 % (36.0-47.0); HEMOGLOBIN 13.2 g/dl (12.0-15.5); LYMPH # 3.2 10^3/uL (1.5-5.0); LYMPH % 41.2 % (24.0-44.0); MEAN CORPUSCULAR HGB CONC 31.5 g/dl (32.0-36.5); MEAN CORPUSCULAR VOLUME 92.1 fl (80.0-96.0); MONO # 0.7 10^3/uL (0.0-0.8); MONO % 8.5 % (2.0-8.0); NEUTROPHILS # 3.7 10^3/uL (1.5-8.5); NEUTROPHILS % 47.9 % (36.0-66.0); PLATELET COUNT, AUTOMATED 259 10^3/uL (150-450); RED BLOOD COUNT 4.55 10^6/uL (4.00-5.40); WHITE BLOOD COUNT 7.8 10^3/uL (4.0-10.0)
== END ==
LOC: M WUC 14:32
PROVIDERS: ATTEND Nurse Practitioner Family
DX: M25.521 Pain in right elbow (principal)

== ENCOUNTER 2025-02-13 09:52 | Day surgery (SDC) | payer OTHER ==
[~2025-02-13] VITALS: Ht 167.6 cm; Wt 74.8 kg
[~2025-02-13 09:52] MED LIST changes: +GLYCOPYRROLATE INJ 0.2 MG/ML 2 ML VIAL As Ordered ONE; +LIDOCAINE 2% 100MG/5ML SDV (FOR ANES.) As Ordered ONE; +propofoL 200 MG/20 ML VIAL As Ordered ONE
[2025-02-13] MEDS ORDERED: IPRATROPIUM 0.5MG/ALBUTEROL 2.5MG INH SOL UD 3ML NEB ONE (10:30)
[2025-02-13 11:52] VITALS: TEMP 98.8
[2025-02-13 12:13] VITALS: BP 157/84; O2SAT 96
== END 2025-02-13 12:20 | disposition home or self-care (01) ==
LOC: M OPP 09:52
PROVIDERS: ATTEND Internal Medicine Gastroenterology
DX: D12.4 Benign neoplasm of descending colon (principal); D12.2 Benign neoplasm of ascending colon; K64.8 Other hemorrhoids; D12.9 Benign neoplasm of anus and anal canal; Z86.0100 Personal history of colon polyps, unspecified; K22.9 Disease of esophagus, unspecified; R13.10 Dysphagia, unspecified; G47.30 Sleep apnea, unspecified; Z95.5 Presence of coronary angioplasty implant and graft; Z79.82 Long term (current) use of aspirin; Z79.84 Long term (current) use of oral hypoglycemic drugs; Z79.891 Long term (current) use of opiate analgesic; Z79.899 Other long term (current) drug therapy; F17.210 Nicotine dependence, cigarettes, uncomplicated
CPT/HCPCS: 43235; 45385; 88304; 88305; J1596

== ENCOUNTER → 2025-02-14 | Outpatient (CLI) | payer OTHER ==
[~2025-02-14] MED LIST changes: -GLYCOPYRROLATE INJ 0.2 MG/ML 2 ML VIAL As Ordered ONE; -LIDOCAINE 2% 100MG/5ML SDV (FOR ANES.) As Ordered ONE; -propofoL 200 MG/20 ML VIAL As Ordered ONE
== END ==
LOC: M WUC 14:09
PROVIDERS: ATTEND Nurse Practitioner Family
DX: M19.021 Primary osteoarthritis, right elbow (principal)

== ENCOUNTER → 2025-04-23 | Outpatient (CLI) | payer OTHER | LOC: M RAD 12:58 | PROVIDERS: ATTEND Physician Assistant | DX: M19.071 Primary osteoarthritis, right ankle and foot (principal) ==

== ENCOUNTER → 2025-05-24 | Outpatient (REF) | payer OTHER | LOC: M SFHCPLAZ 11:18 | PROVIDERS: ATTEND Student in an Organized Health Care Education/Training Program | DX: R13.10 Dysphagia, unspecified (principal); R20.2 Paresthesia of skin; R73.03 Prediabetes ==

== ENCOUNTER → 2025-05-30 | Outpatient (CLI) | payer OTHER ==
[~2025-05-30] MED LIST changes: +BARIUM SULFATE 700 MG TABLET As Ordered ONE; +E-Z-PAQUE 96% w/w SUSP 176 GM BTL As Ordered ONE; +VARIBAR NECTAR 40% w/v 240ML SUSP BTL As Ordered ONE; +VARIBAR PUDDING 40% w/v 230ML TUBE As Ordered ONE
== END ==
LOC: M RAD 10:16
PROVIDERS: ATTEND Otolaryngology
DX: R13.10 Dysphagia, unspecified (principal)

== ENCOUNTER → 2025-05-31 | Outpatient (CLI) | payer OTHER ==
[~2025-05-31] MED LIST changes: -BARIUM SULFATE 700 MG TABLET As Ordered ONE; -E-Z-PAQUE 96% w/w SUSP 176 GM BTL As Ordered ONE; -VARIBAR NECTAR 40% w/v 240ML SUSP BTL As Ordered ONE; -VARIBAR PUDDING 40% w/v 230ML TUBE As Ordered ONE
[2025-05-31 15:22] LABS: PLATELET COUNT, AUTOMATED 257 10^3/uL (150-450)
[2025-05-31 15:27] LABS: CHOLESTEROL LEVEL 153.0 MG/DL (<200); CHOLESTEROL RISK RATIO 2.53 (<5); LDL CHOLESTEROL 58.9 MG/DL (<100); NON-HDL-C 92.7 MG/DL; TRIGLYCERIDES LEVEL 169.0 MG/DL (<150)
[2025-05-31 15:31] LABS: VITAMIN B12 LEVEL 1492.0 PG/ML (211-911)
[2025-05-31 16:41] LABS: ESTIMATED AVERAGE GLUCOSE 120.0 MG/DL (60-110)
== END ==
LOC: M PLAIMG 12:43
DX: E78.00 Pure hypercholesterolemia, unspecified (principal); Z90.5 Acquired absence of kidney; R20.2 Paresthesia of skin; R73.03 Prediabetes

== ENCOUNTER → 2025-07-17 | Outpatient (CLI) | payer OTHER ==
[~2025-07-17] MED LIST changes: -COLC0.6T47 PO; +COLC0.6T53 PO
== END ==
LOC: M RAD 11:50
PROVIDERS: ATTEND Otolaryngology
DX: E06.9 Thyroiditis, unspecified (principal); E04.1 Nontoxic single thyroid nodule

== ENCOUNTER → 2025-09-04 | Outpatient (CLI) | payer OTHER ==
[2025-09-04 18:58] LABS: PLATELET COUNT, AUTOMATED 245 10^3/uL (150-450)
== END ==
LOC: M PLAIMG 14:21
DX: J06.9 Acute upper respiratory infection, unspecified (principal)